=== PATIENT | female | born 1950 | race African-American/Black ===

== ENCOUNTER → 2017-03-04 | Outpatient (CLI) | payer OTHER ==
[2015-10-24 15:00] VITALS: BP 123/80
[~2017-03-04] MED LIST: ALBU18HF IH; ASPI-482 PO; ATOR20TA58 PO; BUPR150T11 PO; CARV6.252 PO; DULO60CA44 PO; FLUT12AE IH; FURO20TA3 PO; OLME20TA19 PO; POTA20TA84 PO; WARF7.5T6 PO
[2017-03-04 13:04] LABS: ALBUMIN 3.7 g/dL (3.4-5.0); ALBUMIN/GLOBULIN RATIO 0.9 (1.0-1.7); CALCIUM 8.9 mg/dL (8.5-10.1); GFR 66.9; POTASSIUM 3.9 mmol/L (3.5-5.1); TOTAL BILIRUBIN 0.5 mg/dL (0.2-1.0); TOTAL PROTEIN 7.9 g/dL (6.4-8.2)
== END | disposition home or self-care (01) ==
LOC: LAB 11:31
PROVIDERS: ATTEND Nurse Practitioner
DX: E78.5 Hyperlipidemia, unspecified (principal)
CPT/HCPCS: 36415; 80053; 80061

== ENCOUNTER → 2017-05-14 | Outpatient (CLI) | payer OTHER ==
[2015-10-24 15:00] VITALS: BP 123/80
[2017-05-14 09:24] LABS: ALBUMIN 3.8 g/dL (3.4-5.0); CALCIUM 9.2 mg/dL (8.5-10.1); GFR 66.9; POTASSIUM 3.6 mmol/L (3.5-5.1); TOTAL BILIRUBIN 0.5 mg/dL (0.2-1.0); TOTAL PROTEIN 7.7 g/dL (6.4-8.2)
== END | disposition home or self-care (01) ==
LOC: LAB 08:47
PROVIDERS: ATTEND Nurse Practitioner
DX: E78.5 Hyperlipidemia, unspecified (principal)
CPT/HCPCS: 36415; 80053; 80061

== ENCOUNTER → 2018-04-04 | Outpatient (CLI) | payer OTHER ==
[2015-10-24 15:00] VITALS: BP 123/80
[~2018-04-04] MED LIST changes: +OLME20TA17 PO; -OLME20TA19 PO; +WARF7.5T45 PO; -WARF7.5T6 PO
[2018-04-04 10:22] LABS: ALBUMIN 3.8 g/dL (3.4-5.0); GFR 66.7; POTASSIUM 3.8 mmol/L (3.5-5.1); TOTAL BILIRUBIN 0.5 mg/dL (0.2-1.0); TOTAL PROTEIN 7.7 g/dL (6.4-8.2)
== END | disposition home or self-care (01) ==
LOC: LAB 09:09
PROVIDERS: ATTEND Nurse Practitioner
DX: E78.5 Hyperlipidemia, unspecified (principal); I25.2 Old myocardial infarction; I10 Essential (primary) hypertension; E78.00 Pure hypercholesterolemia, unspecified; J44.9 Chronic obstructive pulmonary disease, unspecified; I25.10 Atherosclerotic heart disease of native coronary artery without angina pectoris; Z95.4 Presence of other heart-valve replacement; Z90.49 Acquired absence of other specified parts of digestive tract
CPT/HCPCS: 36415; 80053; 80061

== ENCOUNTER → 2019-03-14 | Outpatient (CLI) | payer OTHER ==
[2015-10-24 15:00] VITALS: BP 123/80
[~2019-03-14] MED LIST changes: -ALBU18HF IH; +ALBU2.5V8 IH; -CARV6.252 PO; +CARV6.2541 PO
[2019-03-14 11:00] LABS: ALBUMIN 3.7 g/dL (3.4-5.0); ALBUMIN/GLOBULIN RATIO 0.8 (1.0-1.7); CALCIUM 9.6 mg/dL (8.5-10.1); CREATININE 0.9 mg/dL (0.6-1.0); GFR 75.1; POTASSIUM 4.6 mmol/L (3.5-5.1); TOTAL BILIRUBIN 0.4 mg/dL (0.2-1.0); TOTAL PROTEIN 8.1 g/dL (6.4-8.2)
== END | disposition home or self-care (01) ==
LOC: LAB 09:30
PROVIDERS: ATTEND Nurse Practitioner
DX: E78.5 Hyperlipidemia, unspecified (principal)
CPT/HCPCS: 36415; 80053; 80061

== ENCOUNTER 2020-12-07 20:00 | Emergency (ER) | payer OTHER ==
[~2020-12-07] VITALS: Ht 142.2 cm; Wt 63.6 kg
[~2020-12-07 20:00] MED LIST changes: -DULO60CA44 PO; +DULO60CA98 PO
--- NOTE | 2020-12-07 20:48 | EKG ---
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
[2020-12-07] MEDS ORDERED: ONDANSETRON PF 4 MG/2 ML VIAL. IVP ONE (21:00)
--- NOTE | 2020-12-07 21:04 | PHYS DOC ---
Past History Past Medical History: Arthritis, COPD, Depression Past Surgical History: Cholecystectomy Additional Past Surgical Histo: MVR 02/11/15 Smoking: Cigarettes Alcohol Use: None Drug Use: Marijuana Adult General Chief Complaint Chief Complaint: NAUSEA/VOMITING/DIARRHEA HPI HPI Patient is a 70-year-old female with a past medical history notable for hypertension and COPD who presents with a chief complaint of nausea and vomiting. States she has had nonbloody nonbilious emesis over the last 2 days. Denies any recent travel, fevers, known ill contacts. Denies any headache, chest pain, shortness of breath, abdominal pain, dysuria, hematuria, diarrhea or blood in the stool. States she is able to drink some Gatorade but has had a decreased appetite. Review of Systems Review of Systems Review of systems otherwise unremarkable except noted in HPI Current Medications Current Medications Current Medications Medications (Trade) Dose Ordered Sig/Caro Start Time Stop Time Status Last Admin Dose Admin Ondansetron HCl (Zofran) 4 mg 1X ONCE 12/07/20 21:00 12/07/20 21:01 12/07/20 20:52 4 MG Allergies Allergies Allergies Coded Allergies Type Severity Reaction Last Updated Verified No Known Drug Allergies 10/17/15 No Physical Exam Physical Exam Constitutional: Well developed, well nourished, no acute distress, non-toxic appearance. [] HENT: Normocephalic, atraumatic, bilateral external ears normal, oropharynx moist, no oral exudates, nose normal. [] Eyes: conjunctiva normal, no discharge. [] Neck: Normal range of motion, no tenderness, supple, no stridor. [] Cardiovascular:Heart rate regular rhythm, no murmur [] Lungs & Thorax: Bilateral breath sounds clear to auscultation [] Abdomen: soft, no tenderness, no masses, no pulsatile masses. [] Skin: Warm, dry, no erythema, no rash. [] Back: no CVA tenderness. [] Extremities: No tenderness, no cyanosis, no clubbing, ROM intact, no edema. [] Neurologic: Alert and oriented X 3, normal motor function, normal sensory function, no focal deficits noted. [] Psychologic: Affect normal, judgement normal, mood normal. [] Current Patient Data Vital Signs Vital Signs Date Time Temp Pulse Resp B/P (MAP) Pulse Ox O2 Delivery O2 Flow Rate FiO2 12/07/20 20:15 98.2 80 22 150/98 (115) 98 Room Air EKG EKG [] Radiology/Procedures Radiology/Procedures []CT SCAN OF THE ABDOMEN AND PELVIS WITH IV CONTRAST. History: Reason: ab pain N/V, Comparison:None. Procedure: Contiguous axial images of the abdomen and pelvis were performed after the administration of 75 cc of Omni 300 IV contrast. Oral contrast: No. Findings: There is moderate motion artifact. There is beam Bell artifact in the lower pelvis due to prior bilateral total hip arthroplasty. Liver: Unremarkable Spleen: Unremarkable Pancreas: Unremarkable Adrenal Glands: Unremarkable Kidneys: There is a wedge-shaped hypoattenuating lesion posteriorly in the mid right kidney There is no mass or lymphadenopathy. There is no free air. There is no free fluid. The urinary bladder is not seen due to beam hardening artifact and motion. The visualized portion of the appendix appears normal. There has been prior cholecystectomy. Impression: 1. The study is significantly limited by motion artifact. 2. Wedge-shaped hypoattenuation within the posterior right kidney is nonspecific but could be a scar or infarct or pyelonephritis. End impression. Heart Score C/O Chest Pain: No Risk Factors: Risk Factors: DM, Current or recent (<one month) smoker, HTN, HLP, family history of CAD, obesity. Risk Scores: Risk Factors: DM, Current or recent (<one month) smoker, HTN, HLP, family history of CAD, obesity. Course & Med Decision Making Course & Med Decision Making Patient is a 70-year-old female who presents with 2 days of nausea and vomiting Vital signs notable for hypertension. Physical exam noted above. Patient given Zofran for nausea. Laboratory analysis notable for neutrophilic leukocytosis, proteinuria, ketonuria with normal glucose and no anion gap, mild hyponatremia. [] Imaging notable for scarring on the kidney versus pyelonephritis versus infarct due to artifact. On reassessment discussed all findings with patient and family. Offered admission for continued evaluation and treatment, fluid resuscitation, nausea medicine and pain medicine. Patient stated that she was feeling much better, and would prefer to go home and call her primary care physician at on Wednesday. Discussed the risks of going home including significant illness, disability, worsening pain/nausea and the worst case scenario if there is truly an infarct or significant infection. Patient states she was feeling much better and would prefer to go home and call her primary care Wednesday and get a follow-up. Gave strict return precautions to the ED. Family grateful, verbalized understanding and agreed with plan of discharge. Kassy Disclaimer Kassy Disclaimer This electronic medical record was generated, in whole or in part, using a voice recognition dictation system. Departure Departure: Disposition: 01 DC HOME SELF CARE/HOMELESS Condition: IMPROVED Referrals: PARAMJIT CENTENO MD Patient Instructions: Diet for Diarrhea, Adult, Nausea and Vomiting, Easy-to-R ead Additional Instructions: Please read all of the attached very carefully to go over the things we dis cussed. As discussed please consume a light clear diet over the next few days. Please take your antibiotics as prescribed as well as your nausea medicine and pain medicine. As discussed, please call your primary care physician first thing Wednesday to update on ED visit and set up a follow-up as soon as possible this week. Please come back to the emergency department immediately with new or concerning symptoms as discussed in the room to initiate the plan of admission and continued evaluation and treatment. Scripts Hydrocodone Bit/Acetaminophen (HYDROCODONE-APAP 5-325 ) 1 Each Tablet 1 TAB PO TID PRN for abdominal pain for 5 Days, #15 TAB 0 Refills Prov: CHRISTINA LAKHANI MD 12/08/20 Ondansetron Hcl (ZOFRAN) 4 Mg Tablet 1 TAB PO PRN Q6HRS PRN for NAUSEA for 5 Days, #20 TAB Prov: CHRISTINA LAKHANI MD 12/08/20 Amoxicillin/Potassium Clav (AUGMENTIN 875-125 TABLET) 1 Each Tablet 1 TAB PO BID for abdomianl infection for 10 Days, #20 TAB 0 Refills Prov: CHRISTINA LAKHANI MD 12/08/20 CHRISTINA LAKHANI MD Dec 07, 2020 21:04
[2020-12-07 21:15] LABS: BASO % 0 % (0-3); EOS % 0 % (0-3); HEMATOCRIT 37.8 % (36.0-47.0); HEMOGLOBIN 12.2 g/dL (12.0-15.5); LYMPH # 1.4 x10^3/uL (1.0-4.8); LYMPH % 9 % (24-48); MEAN CORPUSCULAR HEMOGLOBIN 27 pg (25-35); MEAN CORPUSCULAR HGB CONC 32 g/dL (31-37); MEAN CORPUSCULAR VOLUME 82 fL (79-100); MONO # 1.1 x10^3/uL (0.0-1.1); MONO % 7 % (0-9); NEUT # 13.2 x10^3uL (1.8-7.7); NEUT % 84 % (31-73); PLATELET COUNT 190 x10^3/uL (140-400); RED BLOOD COUNT 4.59 x10^6/uL (3.50-5.40); RED CELL DISTRIBUTION WIDTH 16.3 % (11.5-14.5); WHITE BLOOD COUNT 15.8 x10^3/uL (4.0-11.0)
[2020-12-07] MEDS ORDERED: CONTRAST GIVEN. MC PRN (21:15)
[2020-12-07] MEDS ORDERED: IOHEXOL 300 MG/ML 75 ML VIAL. IV ONE (21:30)
[2020-12-07 21:49] LABS: % LYMPHS 5 % (24-48); % MONOS 5 % (0-10); % SEGS 90 % (35-66)
[2020-12-07 21:50] VITALS: BP 158/70
[2020-12-07 21:50] LABS: PLT ESTIMATE ADEQUATE (ADEQUATE)
[2020-12-07 22:15] LABS: CALCIUM 9.6 mg/dL (8.5-10.1); CREATININE 0.7 mg/dL (0.6-1.0); GFR 99.8; POTASSIUM 3.6 mmol/L (3.5-5.1)
[2020-12-07 22:21] LABS: ALBUMIN 3.4 g/dL (3.4-5.0); ALBUMIN/GLOBULIN RATIO 0.6 (1.0-1.7); TOTAL BILIRUBIN 0.6 mg/dL (0.2-1.0); TOTAL PROTEIN 8.7 g/dL (6.4-8.2)
--- NOTE | 2020-12-07 23:14 | RAD ---
CT SCAN OF THE ABDOMEN AND PELVIS WITH IV CONTRAST. History: Reason: ab pain N/V, Comparison:None. Procedure: Contiguous axial images of the abdomen and pelvis were performed after the administration of 75 cc o f Omni 300 IV contrast. Oral contrast: No. Findings: There is moderate motion artifact. There is beam Bell artifact in the lower pelvis due to prior bi lateral total hip arthroplasty. Liver: Unremarkable Spleen: Unremarkable Pancreas: Unremarkable Adrenal Glands: Unremarkable Kidneys: There is a wedge-shaped hypoattenuating lesion posteriorly in the mid right kidney There is no mass or lymphadenopathy. There is no free air. There is no free fluid. The urinary bladder is not seen due to beam hardening artifact and motion. The visualized portion of the appendix appears normal. There has been prior cholecystectomy. Impression: 1. The study is significantly limited by motion artifact. 2. Wedge-shaped hypoattenuation within the posterior right kidney is nonspecific but could be a scar or infarct or pyelonephritis. End impression. PQRS Compliance Statement: One or more of the following individualized dose reduction techniques were utilized for this examinat ion: 1. Automated exposure control 2. Adjustment of the mA and/or kV according to patient size 3. Use of iterative reconstruction technique Electronically signed by: Riky Reeves III, MD (12/07/2020 11:11 PM) [facility]
[2020-12-07 23:25] LABS: BILIRUBIN,URINE NEG (NEG); COLOR,URINE YELLOW; GLUCOSE,URINE NEG (NEG); NITRITE,URINE NEG (NEG)
[2020-12-07 23:26] LABS: AMORPHOUS SEDIMENT,UR PRESENT /HPF; BACTERIA,URINE 0 /HPF (0-FEW); CLARITY,URINE HAZY; RBC,URINE OCC /HPF (0-2); SQUAMOUS EPITHELIAL CELL,UR OCC /LPF; WBC,URINE OCC /HPF (0-4)
[2020-12-08] MEDS ORDERED: ONDA4TAB7 PO (00:06)
[2020-12-08] MEDS ORDERED: AMOX1TAB61 PO (00:06)
[2020-12-08] MEDS ORDERED: HYDR-2155 PO (00:06)
[2020-12-08] MEDS ORDERED: AMOXICILLIN/K CLAV 875/125MG TABLET. PO ONE (00:30)
[2020-12-08] MEDS ORDERED: ONDANSETRON ODT 4 MG TAB.RAPDIS PO ONE (00:30)
[2020-12-08] MEDS ORDERED: MORPHINE SULFATE 4 MG/ML DISP.SYRIN. IV ONE (00:30)
== END 2020-12-08 00:28 | disposition home or self-care (01) ==
LOC: ER 20:00
DX: R11.2 Nausea with vomiting, unspecified (principal); M19.90 Unspecified osteoarthritis, unspecified site; J44.9 Chronic obstructive pulmonary disease, unspecified; F17.210 Nicotine dependence, cigarettes, uncomplicated
CPT/HCPCS: 36415; 74177; 80053; 81001; 83690; 84484; 85007; 85025; 93005; 96374; 96375; 99285; J2270; J2405; Q0162; Q9967

== ENCOUNTER 2021-01-17 10:35 | Inpatient (IN) | payer OTHER ==
[~2021-01-17] VITALS: Ht 157.5 cm; Wt 61.1 kg
[~2021-01-17 10:35] MED LIST changes: +AMOX1TAB61 PO; +HYDR-2155 PO; +ONDA4TAB7 PO
[2021-01-17] MEDS ORDERED: IOHEXOL 350 MG/ML 100 ML VIAL. ONE (10:47)
--- NOTE | 2021-01-17 10:51 | RAD ---
EXAM: Head CT without contrast. HISTORY: Stroke. Facial droop. TECHNIQUE: Computed tomographic images of the head were obtained without contrast. *One or more of the following individualized dose reduction techniques were utilized for this examina tion: 1. Automated exposure control. 2. Adjustment of the mA and/or kV according to patient size. 3. Use of iterative reconstruction technique. COMPARISON: None. FINDINGS: There is a small region of hypodensity within the left parietotemporal frontal lobe cortex and underlying white matter, suggesting infarct of uncertain chronicity. There are cerebral white mat ter changes due to chronic small vessel disease. There are small chronic lacunar infarct within the b emily ganglia. There is also a focal encephalomalacia within the right cerebellum likely due to chroni c infarction. There is mild cerebral volume loss. The orbits, paranasal sinuses mastoid air cells are unremarkable. There is no suspicious calvarial lesion. IMPRESSION: 1. Suspected small acute or subacute infarct within the left parietal lobe. This can be better assess ed with a MRI. 2. Small chronic lacunar infarcts within the bilateral basal ganglia and small suspected chronic infa rct within the right cerebellum. 3. Bilateral cerebral white matter changes, likely due to chronic small vessel disease. Findings were discussed with Dr. Duong in the ED at 1040 hours on 01/17/2021. FOR INTERNAL CODING PURPOSES RESULT CODE: (C) Electronically signed by: Josselin Shah MD (01/17/2021 10:49 AM) [id number]
[2021-01-17] MEDS ORDERED: ONDANSETRON PF 4 MG/2 ML VIAL. ONE (10:52)
[2021-01-17 10:57] LABS: BASO # 0.1 x10^3/uL (0.0-0.2); BASO % 1 % (0-3); EOS # 0.1 x10^3/uL (0.0-0.7); EOS % 1 % (0-3); HEMATOCRIT 36.3 % (36.0-47.0); HEMOGLOBIN 11.7 g/dL (12.0-15.5); LYMPH # 1.5 x10^3/uL (1.0-4.8); LYMPH % 13 % (24-48); MEAN CORPUSCULAR HEMOGLOBIN 26 pg (25-35); MEAN CORPUSCULAR HGB CONC 32 g/dL (31-37); MEAN CORPUSCULAR VOLUME 81 fL (79-100); MONO # 1.3 x10^3/uL (0.0-1.1); MONO % 11 % (0-9); NEUT # 8.7 x10^3uL (1.8-7.7); NEUT % 74 % (31-73); PLATELET COUNT 145 x10^3/uL (140-400); RED BLOOD COUNT 4.48 x10^6/uL (3.50-5.40); RED CELL DISTRIBUTION WIDTH 16.8 % (11.5-14.5); WHITE BLOOD COUNT 11.7 x10^3/uL (4.0-11.0)
[2021-01-17] MEDS ORDERED: IOHEXOL 350 MG/ML 100 ML VIAL. IV ONE (11:00)
[2021-01-17] MEDS ORDERED: CONTRAST GIVEN. MC PRN (11:00)
--- NOTE | 2021-01-17 11:08 | PHYS DOC ---
Past History Past Medical History: Arthritis, COPD, Depression Past Surgical History: Cholecystectomy Additional Past Surgical Histo: MVR 02/11/15 Smoking: Cigarettes Alcohol Use: None Drug Use: Marijuana Adult General Chief Complaint Chief Complaint: SLURRED SPEECH HPI HPI Patient is a 70-year-old female presenting via EMS for slurred speech. Last known normal was yesterday evening at 9 PM. Reports she fell asleep, slept well and on waking up, continue to have slurred speech. She reports trying to eat breakfast and having mild difficulty with associated right upper extremity weakness which concerned her prompting her to hit her life alert button for transport to our ER for evaluation. On arrival, patient reports ongoing aphasia and mild difficulty with motor function of right upper extremity. No trauma, no falls, she is not on any blood thinners, no major changes in baseline health. She has no history of CAD and/or CVA Review of Systems Review of Systems Fourteen body systems of review of systems have been reviewed. See HPI for pertinent positives and negative responses, other [place] all other systems are negative, non-pertinent or non-contributory Current Medications Current Medications Current Medications Medications (Trade) Dose Ordered Sig/Caro Start Time Stop Time Status Last Admin Dose Admin Info (Do NOT chart on this entry -- for MONITORING) 1 each PRN DAILY PRN 01/17/21 11:00 01/19/21 10:59 Iohexol (Omnipaque 350 Mg/ml) 100 ml STK-MED ONCE 01/17/21 10:47 01/17/21 10:47 DC Ondansetron HCl (Zofran) 4 mg STK-MED ONCE 01/17/21 10:52 01/17/21 10:52 DC Allergies Allergies Allergies Coded Allergies Type Severity Reaction Last Updated Verified No Known Drug Allergies 10/17/15 No Physical Exam Physical Exam Constitutional: Pt is oriented to person, place, and time. Pt appears well-developed and well- nourished. HEENT: Head: Normocephalic and atraumatic. TMs clear, no hemotympanum Conjunctivae and EOM are normal. Pupils are equal, round, and reactive to light. Oropharynx is clear and moist. Poor dentition No hematomas or lacerations or abrasions to face or scalp OP clear, no blood, no malocclusion, dentition intact Nares clear, no nasal septal hematoma Midface stable Neck: C-spine midline nontender, no step-offs Cardiovascular: Normal rate, regular rhythm and normal heart sounds. Pulmonary/Chest: Effort normal and breath sounds normal. No respiratory distress. No wheezes. CTA bilaterally Abdominal: Soft. Bowel sounds are normal. Pt exhibits no distension. There is no tenderness. Musculoskeletal: No bony tenderness to extremities, no deformities, full ROM extremities Chest wall stable Pelvis stable and non-tender No vertebral TTP and spine without stepoffs Neurological: Pt is alert and oriented to person, place, and time. Moving all extremities willfully, able to wiggle all fingers and toes Alert and oriented x 3 Sensation intact Partial paralysis of left lower face Severe aphasia; fragmentary expression. Mod dysarthria with slurring that is understandable 4/5 muscle strength of right upper extremity otherwise motor function intact Pspxtw-tp-efup testing, znyg-ej-roaa testing, leg raise, arm raise testing all unremarkable Cranial nerves II through XII intact bilaterally Mild aphasia present which is not her baseline Skin: Skin is warm and dry. No abrasions, no lacerations Psychiatric: Behavior is appropriate for situation Current Patient Data Vital Signs Vital Signs Date Time Temp Pulse Resp B/P (MAP) Pulse Ox O2 Delivery O2 Flow Rate FiO2 01/17/21 10:35 98.2 90 24 138/77 (97) 97 Room Air Vital Signs Date Time Temp Pulse Resp B/P (MAP) Pulse Ox O2 Delivery O2 Flow Rate FiO2 01/17/21 10:35 98.2 90 24 138/77 (97) 97 Room Air EKG EKG EKG ordered and interpreted by myself at 1100 hrs. as sinus rhythm at 92 bpm, prolonged NV interval at 270 otherwise unremarkable intervals, left axis deviation, no acute ischemic findings, no STEMI Radiology/Procedures Radiology/Procedures EXAM: Head CT without contrast. HISTORY: Stroke. Facial droop. TECHNIQUE: Computed tomographic images of the head were obtained without contrast. *One or more of the following individualized dose reduction techniques were utilized for this examination: 1. Automated exposure control. 2. Adjustment of the mA and/or kV according to patient size. 3. Use of iterative reconstruction technique. COMPARISON: None. FINDINGS: There is a small region of hypodensity within the left parietotemporal frontal lobe cortex and underlying white matter, suggesting infarct of uncertain chronicity. There are cerebral white matter changes due to chronic small vessel disease. There are small chronic lacunar infarct within the basal ganglia. There is also a focal encephalomalacia within the right cerebellum likely due to chronic infarction. There is mild cerebral volume loss. The orbits, paranasal sinuses mastoid air cells are unremarkable. There is no suspicious calvarial lesion. IMPRESSION: 1. Suspected small acute or subacute infarct within the left parietal lobe. This can be better assessed with a MRI. 2. Small chronic lacunar infarcts within the bilateral basal ganglia and small suspected chronic infarct within the right cerebellum. 3. Bilateral cerebral white matter changes, likely due to chronic small vessel disease. ////////////////////// Heart Score C/O Chest Pain: No HEART Score for Chest Pain: HEART Score for Chest Pain Response (Comments) Value History Slighlty/Non-Suspicious 0 ECG Normal 0 Age > 65 2 Risk Factors 1 or 2 Risk Factors 1 Troponin < Normal Limit 0 Total 3 Risk Factors: Risk Factors: DM, Current or recent (<one month) smoker, HTN, HLP, family history of CAD, obesity. Risk Scores: Risk Factors: DM, Current or recent (<one month) smoker, HTN, HLP, family history of CAD, obesity. Course & Med Decision Making Course & Med Decision Making Vital signs stable. HPI and physical exam concerning for intracranial abnormality such as ischemic stroke. Code stroke initiated on immediate arrival. Edlmx-ja-zqeh glucose unremarkable. NIH stroke scale 6 and performed in route to CT suite CT without concerning for left parietal/temporal ischemic infarct. CTA head and neck performed at same time without acute thrombus identified Patient brought back to ER bed for further history gathering and work-up. She suffered x1 episode of nonbloody nonbilious emesis with ongoing right lower mouth drooling present [facility] neurology team contacted and case reviewed, they agreed no indication for thrombectomy. Outpatient arteriogram for 1.1 cm aneurysm was recommended [facility] neurology team contacted and case reviewed, no emergent need or need for transfer for MRI at present Dr. Hightower, neurology at [facility] contacted and case reviewed. He agreed on current plan of care and recommended admission for ongoing neurology care. He advised to start patient on 81 mg aspirin and 75 mg Plavix Hospitalist at [facility] contacted and case discussed, he agreed need for admission and accepted patient under his care Patient updated on all conversations had, she agrees to plan of care as stated that includes hospital admission to [facility]. All questions and concerns addressed prior to admission Critical Care Time This patient required critical care. Due to the fact that the patient required a significant amount of one on one physician - patient contact time, ordering and review of studies, arranging urgent treatment with development of a management plan, evaluation of patients response to treatment with frequent reassessments, and discussions with other providers this patient required 50 minutes of critical care time. Critical care time was indicated due to the inherent instability and/or potential for instability in this patient. The critical care time that is allocated to this patient is above and beyond any time spent on any other billable procedures performed on this patient. Dragon Disclaimer Dragon Disclaimer This electronic medical record was generated, in whole or in part, using a voice recognition dictation system. NIH Stroke Scale: NIH Stroke Scale Response (Comments) Value Level of Consciousness: 0 Alert/Responsive 0 LOC Questions: 0 Answers both correctly 0 LOC Commands: 0 Performs both tasks 0 Best Gaze: 0 Normal 0 Visual: 0 No visual loss 0 Facial Palsy: 2 Partial paralysis 2 Motor - Left Arm 0 No drift 0 Motor - Right Arm 1 Drifts but can hold 1 Motor - Left Leg 0 No drift 0 Motor: Right Leg 0 No drift 0 Limb Ataxia: 0 Absent 0 Sensory: 0 No loss 0 Best Language: 2 Severe aphasia 2 Dysathria: 1 Mild to moderate 1 Extinction and Inattention: 0 Normal 0 Total 6 Departure Departure: Impression: Primary Impression: Ischemic stroke Disposition: ADMITTED INPATIENT Admitting Physician: Chano Boles Condition: STABLE Referrals: NON,STAFF (PCP) BREANNE RAMIREZ DO January 17, 2021 11:08
--- NOTE | 2021-01-17 11:25 | RAD ---
EXAM: CT angiogram of the head and neck with intravenous contrast. HISTORY: Slurred speech. Right upper extremity weakness. TECHNIQUE: Computed tomographic images of the head and neck were obtained following the administratio n of contrast. Three-dimensional maximum intensity projection images were obtained. *One or more of the following individualized dose reduction techniques were utilized for this examina tion: 1. Automated exposure control. 2. Adjustment of the mA and/or kV according to patient size. 3. Use of iterative reconstruction technique. COMPARISON: Noncontrast head CT on the same date. FINDINGS: The exam is limited due to suboptimal contrast opacification of the neck and intracranial a rteries. There is evidence of prior coronary artery bypass grafting. The aortic arch is normal in shefali iber. There is partially calcified atherosclerotic plaque involving the carotid bulbs and proximal in ternal carotid arteries. This results in less than 50 percent stenosis within the right carotid bulb and proximal right internal carotid artery and 50-69 percent stenosis within the left carotid bulb an d proximal left internal carotid artery. The distal internal carotid arteries are tortuous. There is a right internal carotid artery aneurysm with peripheral calcified atherosclerotic plaque measuring 1.1 cm proximal to the petrous segment. Th ere is partially calcified atherosclerotic plaque involving the cavernous internal carotid arteries, resulting in 50-69 percent stenosis bilaterally. The anterior, middle and posterior cerebral arteries are widely patent. The posterior communicating arteries and anterior commuting indicating artery are patent. The basilar artery is patent. The right vertebral artery is dominant and the distal left sharmin tebral artery is hypoplastic. There is decreased attenuation within the left parietal lobe. There are white changes due to chronic small vessel disease. There are suspected chronic lacunar infarcts within the basal ganglia and there is a suspected small chronic infarct within the right cerebellum. There are small axillary sinus mucous retention cysts. The mastoid air cells are clear. There are deg enerative changes throughout the cervical spine. This results in [id number]-[id number] right and moderate to severe left foraminal and mild central canal stenosis at C3-C4, moderate lateral foraminal stenosi s at C4-C5, mild left foraminal stenosis at C5-C6 and moderate left foraminal stenosis at C6-C7. There is a heterogeneous thyroid, difficult to assess given timing of contrast administration. There is pulmonary emphysema and peripheral chronic interstitial changes within the visualized lungs. There is a small amount of suspected mucus within the left mainstem bronchus.. IMPRESSION: 1. Significantly limited exam due to suboptimal contrast opacification of the neck and intracranial a rteries. No severe stenosis or occlusion is seen. 2. Moderate atherosclerotic plaque involving the carotid bifurcations and distal internal carotid art eries. This results in less than 50 percent stenosis involving the proximal right internal carotid ar oumou, 50-69 percent stenosis involving the proximal left internal carotid artery and 50-[address] enosis involving the bilateral cavernous segments of the internal carotid arteries. 3. 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 4. Small region of hypodensity within the left parietal lobe, concerning for an acute or subacute inf arct. This can be better assessed with an MRI. This was reported to the referring doctor at the time of a noncontrast head CT. 5. Bilateral cerebral white changes, likely due to chronic small vessel disease. PQRS Compliance Statement - Stenosis calculations for CT, MR and conventional angiography are based u oumar measurement of the distal ICA diameter in accordance with the NASCET methodology. Stenosis calcu lations for carotid ultrasound studies are derived from validated velocity criteria which are known t o correlate with the NASCET methodology. Electronically signed by: Josselin Shah MD (01/17/2021 11:23 AM) [id number]
--- NOTE | 2021-01-17 11:29 | EKG ---
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
[2021-01-17] MEDS ORDERED: ONDANSETRON PF 4 MG/2 ML VIAL. IVP ONE (11:30)
[2021-01-17 11:50] LABS: BILIRUBIN,URINE NEG (NEG); CLARITY,URINE CLEAR; COLOR,URINE YELLOW; GLUCOSE,URINE NEG (NEG); NITRITE,URINE NEG (NEG); RBC,URINE OCC /HPF (0-2)
[2021-01-17 11:51] LABS: BACTERIA,URINE FEW /HPF (0-FEW); SQUAMOUS EPITHELIAL CELL,UR MOD /LPF
[2021-01-17] MEDS ORDERED: CLOPIDOGREL BISULFATE 75 MG TABLET PO ONE ×2 (12:00→18:00)
[2021-01-17] MEDS ORDERED: ASPIRIN CHEWABLE 81 MG TABLET. PO ONE ×2 (12:00→18:00)
[2021-01-17 12:26] LABS: CALCIUM 8.6 mg/dL (8.5-10.1); CREATININE 1.9 mg/dL (0.6-1.0); GFR 31.5; POTASSIUM 4.4 mmol/L (3.5-5.1)
[2021-01-17 12:27] LABS: BARBITURATES NEG (NEG); BENZODIAZEPINES NEG (NEG); CANNABINOIDS NEG (NEG); COCAINE POS (NEG); METHADONE NEG (NEG); OPIATES NEG (NEG); PHENCYCLIDINE NEG (NEG)
[2021-01-17 12:28] LABS: AMPHETAMINE/METHAMPHETAMINE NEG (NEG)
[2021-01-17 12:34] LABS: ALBUMIN 3.4 g/dL (3.4-5.0); ALBUMIN/GLOBULIN RATIO 0.8 (1.0-1.7); TOTAL BILIRUBIN 0.6 mg/dL (0.2-1.0); TOTAL PROTEIN 7.8 g/dL (6.4-8.2)
--- NOTE | 2021-01-17 12:54 | RAD ---
Exam Date: 01/17/2021 12:45 PM XR CHEST 1V Indication: Reason: EMESIS / Spl. Instructions: / History: Comparison: March 15, 2014 FINDINGS/ IMPRESSION: Postoperative changes are noted. Aorta is calcified. The cardiac silhouette is enlarged with mild congestion. Prominent interstitial markings are noted di ffusely bilaterally which are nonspecific but could represent interstitial edema or pneumonia. There is no appreciable pleural effusion or pneumothorax. Electronically signed by: Konrad Hartman MD (01/17/2021 12:52 PM) [facility]
--- NOTE | 2021-01-17 15:43 | NUR ---
PATIENT IS 70 Y O FEMALE, ARRIVED VIA EMS, PATIENT IS AWAKE IN A BED UPON ASSESSMENT, VS OBTAINED AND ARE STABLE. PATIENT DENIED ANY PAIN AT THIS MOMENT, PATIENT IS UNABLE TO PUT THE WORDS TOGETHER, HAS DIFFICULTY TO EXPRESS HERSELF. SLIGHT CONFUSION UPON ASSESSMENT, PATIENT HAS MILD WEAKNESS TO RUE AND RLE, PT WAS ABLE TO TRANSFER TO THE COMMODE WITH ASSIST X 1. PATIENT WAS ORIENTED TO THE ROOM AND HOSPITAL POLICIES. WILL CTM.
[2021-01-17 15:52] VITALS: BP 119/79
[2021-01-17] MEDS ORDERED: ALBUTEROL SULFATE 2.5 MG/3 ML NEBU. IH PRN (17:45)
[2021-01-17] MEDS ORDERED: ONDANSETRON ODT 4 MG TAB.RAPDIS PO PRN (18:00)
--- NOTE | 2021-01-17 18:23 | NUR ---
CONSULT FOR MENTAL HEALTH PROFESSIONAL HAS BEEN CALLED.
--- NOTE | 2021-01-17 18:37 | HP ---
ADMIT DATE: 01/17/2021 HISTORY OF PRESENT ILLNESS: The patient is a 70-year-old -[place] female patient who presented to the emergency room via EMS with slurred speech, the last known normal was yesterday evening at around 9:00 p.m. She reported that she fell asleep, slept very well and on waking up, she continued to have slurred speech. She reports trying to eat breakfast, having mild difficulty with associated right upper extremity weakness, which concerned her, prompting her to hit her Life Alert button for transfer to Emergency Room for evaluation. On arrival to the Emergency Room, the patient has ongoing aphasia and mild difficulty with motor function of the right upper extremity. There was no history of trauma or falls. She is not known to have blood thinner or no major changes in her baseline health and has had no previous history of coronary artery disease or CVA. She was extensively investigated in the emergency room and has had lab work, which showed that she has elevated troponin at 0.164. She has also chronic kidney disease or acute on chronic kidney disease. Her PT, INR and APTT are normal. Urinalysis was essentially unremarkable; however, toxic screen was positive for cocaine, has had a CT scan of the head which showed that the patient has suspected small acute or subacute infarct within the left parietal lobe. This can be better assessed with MRI. She has small chronic lacunar infarct within the bilateral basal ganglia and a small suspected chronic infarct within the right cerebellum. She has bilateral cerebral white matter changes likely due to chronic small vessel disease. She has had a CT angio of the head and neck, which showed the patient has significantly limited exam due to suboptimal contrast opacification of the neck and intracranial arteries. No severe stenosis or occlusion is seen. She has moderate atherosclerotic plaque involving the carotid bifurcation and distal internal carotid arteries. This resulted in less than 50% stenosis involving the proximal right internal carotid artery 50-69% stenosis involving the proximal left internal carotid artery and 50-69% stenosis involving the bilateral cavernous segment of the internal carotid arteries. 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 She has small region of hypodensity within the left parietal lobe concerning for an acute or subacute infarct, bilateral cerebral white changes likely due to chronic small vessel disease. Apparently, the ER physician has contacted the neurologist at [facility] and spoke with Dr. Cabezas as well as Dr. Hightower. The [facility] Neurology has been contacted and case reviewed and they agreed no indication for thrombectomy and outpatient arteriogram for 1.1 cm aneurysm was recommended. The [facility] Neurology Team contacted and case reviewed, no emergent need for transferred for MRI, and Dr. Hightower, neurologist at [facility] contacted and the case was reviewed. He agreed with the current plan of care and recommended admission for ongoing neurology care. Plan to start the patient on aspirin and Plavix. The patient was admitted and obviously consulted Dr. Hightower. We will also arrange for an echocardiogram and have Cardiology consult and check her fasting lipid profile as well as consult Physical, Occupational and speech therapy. PAST MEDICAL HISTORY: Significant for hypertension. No other medical problems available MEDICATIONS: She apparently was on Coumadin at one point. She is also on atorvastatin 20 mg daily, carvedilol 6.25 mg twice a day, minoxidil 20 mg once a day. She was on hydrocodone/APAP 5/325 three times a day, Wellbutrin 150 mg twice a day, duloxetine 60 mg daily, furosemide 20 mg daily, ondansetron 4 mg every 6 hours as needed. FAMILY HISTORY: Noncontributory and in fact unobtainable. SOCIAL HISTORY: She apparently lives alone. She has 2 daughters. The patient is having difficulty finding words and no further information are obtainable. PHYSICAL EXAMINATION: GENERAL: On arrival to the emergency room, she looked well and was clearly in no apparent respiratory distress. No pallor, jaundice, cyanosis, or thyromegaly. No jugular venous distention. No lower limb edema. VITAL SIGNS: Her heart rate was 88, blood pressure 142/77, temperature was 98.3, respiratory rate was 22 and oxygen saturation was 98%. HEAD, EYES, EARS, NOSE, AND THROAT: Normocephalic, atraumatic. NECK: Supple. HEART: Normal first and second heart sounds, no gallop, murmur. CHEST: Clear to auscultation. No crepitation or rhonchi. ABDOMEN: Distended, soft, nontender. NEUROLOGIC: The patient was awake, alert, clearly has expressive aphasia, worsened aphasia. She has mild right-sided facial droop, right-sided hemiplegia, worse in the right upper extremity compared to right lower extremity. LABORATORY DATA: Showed a white cell count of 11,700, hemoglobin 12, hematocrit 36, MCV 81 and platelet count of 145,000. Her chemistry showed a serum sodium 135, potassium 4.4, chloride 101, bicarbonate 24, anion gap of 10, BUN 21, creatinine 1.9. Estimated GFR was 31 mL per minute. Her glucose 117, lactic acid 0.8, calcium was 8.6. Total bilirubin, AST, ALT, alkaline phosphatase were normal. Her first set of cardiac enzymes showed troponin to be 0.164. Total protein 7.8, albumin was 3.4. Her prothrombin time was 10.6, INR of 1, APTT was 25. Urinalysis was essentially unremarkable. Her toxic screen was positive for cocaine, negative for opiates, methadone, barbiturates, incyclinide, amphetamine, methamphetamine, benzodiazepine, cannabinoids and alcohol. So, in summary, this is a 70-year-old -[place] female patient who was admitted with slurring of speech and right-sided weakness, more dense in her right upper extremity than lower extremity. CT scan of the head showed that the patient has suspected small acute to subacute infarct within the left parietal lobe. The patient has also small chronic lacunar infarct within the bilateral basal ganglia and small suspected chronic infarct within the right cerebellum and has bilateral cerebral white matter changes likely due to chronic small vessel disease. The patient will be started on Plavix and aspirin. She probably has also history of atrial fibrillation and as she was before on Coumadin, we will put the patient on telemetry bed. Consult the Cardiology, also arrange for an echocardiogram; PT, OT and speech therapy and will reconcile all her medications. JANICE DR: Caro TID: [id number]
--- NOTE | 2021-01-17 19:45 | NUR ---
Pt has a fever of 101.3. Pt is not following commands. MD notified of this finding. Orders received.
[2021-01-17 19:51] VITALS: BP 115/79
--- NOTE | 2021-01-17 20:15 | NUR ---
[employer]OVAL SUPERVISOR scanned bladder to see if pt was retaining urine. Pt had 200 in her bladder and then she urinated 150 out.
[2021-01-17] MEDS: buPROPion SR 150 MG TABLET.SA PO SCH (20:46)
[2021-01-17] MEDS: CARVEDILOL 6.25 MG TABLET PO SCH (20:47)
[2021-01-17] MEDS: ACETAMINOPHEN 325 MG TABLET PO PRN (20:47)
[2021-01-17] MEDS ORDERED: AZITHROMYCIN 500 MG in IV NORMAL SALINE 250ML 250 ML IV ONE (21:00)
[2021-01-17 21:57] LABS: BACTERIA,URINE 0 /HPF (0-FEW); BILIRUBIN,URINE NEG (NEG); CLARITY,URINE CLEAR; COLOR,URINE YELLOW; GLUCOSE,URINE NEG (NEG); NITRITE,URINE NEG (NEG); RBC,URINE RARE /HPF (0-2); SQUAMOUS EPITHELIAL CELL,UR MOD /LPF
[2021-01-17 23:00] VITALS: BP 76/52
--- NOTE | 2021-01-17 23:25 | NUR ---
Upon 2300 vitals pt's BP was 76/52 with a heart rate of 83. Placed pt in Trendelenburg and pt's BP is now 84/57 with a heart rate of 80. MD notified and orders received to give 500 ml bolus.
[2021-01-17 23:26] VITALS: BP 84/57
[2021-01-17] MEDS ORDERED: IV NORMAL SALINE 500ML 500 ML IV ONE (23:45)
[2021-01-18] VITALS (9 sets, daily range): BP systolic 86–146; BP diastolic 47–96
[2021-01-18] MEDS ORDERED: IV NORMAL SALINE 500ML 500 ML IV ONE (00:30)
--- NOTE | 2021-01-18 00:44 | NUR ---
Pt's BP came back up after 500 ml bolus.
[2021-01-18 07:08] LABS: ALBUMIN 2.8 g/dL (3.4-5.0); ALBUMIN/GLOBULIN RATIO 0.6 (1.0-1.7); CALCIUM 8.7 mg/dL (8.5-10.1); CREATININE 2.2 mg/dL (0.6-1.0); GFR 26.6; POTASSIUM 4.5 mmol/L (3.5-5.1); TOTAL BILIRUBIN 0.5 mg/dL (0.2-1.0); TOTAL PROTEIN 7.6 g/dL (6.4-8.2)
--- NOTE | 2021-01-18 08:04 | NUR ---
This nurse assumed care for patient at 0700. Report taken from TOMA Frederick. Patient resting quietly in bed at time of report. Yoly states she did not administer second IV NS Bolus d/t patient's BP returned to normal limits. IV bolus non-administered in the eMAR at this time. No concerns noted at this time, will continue to monitor.
[2021-01-18] MEDS: DULoxetine HCL 60 MG CAPSULE.DR PO SCH (09:23)
[2021-01-18] MEDS: buPROPion SR 150 MG TABLET.SA PO SCH ×2 (09:23→21:00)
[2021-01-18] MEDS: ATORVASTATIN CALCIUM 20 MG TABLET PO SCH (09:24)
[2021-01-18] MEDS: CARVEDILOL 6.25 MG TABLET PO SCH ×2 (09:24→21:02)
[2021-01-18] MEDS: LOSARTAN 50 MG TABLET. PO SCH (09:24)
--- NOTE | 2021-01-18 13:37 | PN ---
SUBJECTIVE: The patient denies any new medical or neurological complaints; however, she continues to have aphasia and difficulty finding words. Her comprehension appeared to be intact. She is unable to complete sentences. She has a problem with naming, reading and writing. OBJECTIVE: GENERAL: Well-developed, well-nourished -[place] female, in no acute distress. VITAL SIGNS: Blood pressure 115/71, respiratory rate 18, pulse is 76 and regular, oxygen saturation 98% and temperature is 98.7. HEENT: Normocephalic, atraumatic, otherwise unremarkable. NECK: Supple, negative for carotid bruit, lymphadenopathy or thyromegaly. LUNGS: Clear to A and P. HEART: Regular rate and rhythm, normal S1, S2. ABDOMEN: Soft. Bowel sounds positive. EXTREMITIES: Negative for cyanosis, clubbing or edema. NEUROLOGIC: Mental status: The patient is awake, but aphasic of motor aphasia with intact comprehension as described above, otherwise unchanged. Cranial nerves: Right facial asymmetry of central type. Motor examination revealed right hemiparesis, more prominent in the right upper extremity and distally more than proximally consistent with acute/subacute stroke. The strength also was 4/5 throughout. Sensory examination revealed dense diminished pinprick and light touch senses over the right face, upper and lower extremities. Deep tendon reflexes were asymmetric and hypoactive with equivalent Babinski. Gait not tested. IMPRESSION: 1. Status post acute/subacute stroke resulted in right hemiparesis, more prominent in the right upper extremity along with language dysfunctions of motor type. 2. Multiple medical problems include hypertension, hyperlipidemia, depression, anxiety. Urine drug screen is positive for cocaine. Abnormal chest x-ray revealed prominent interstitial markings suggestive of pneumonia. RECOMMENDATIONS: Continue with current medical care. Await for a complete stroke workup and rehabilitation including PT/OT and speech therapy. AFIA/KINGSLEY DR: Lizet TID: [id number]
[2021-01-18] MEDS: IV NORMAL SALINE 1,000ML 1,000 ML IV SCH (13:43)
--- NOTE | 2021-01-18 20:09 | PN ---
DATE: 01/18/[address]: Caro TID: [id number]
--- NOTE | 2021-01-18 20:53 | PN ---
DATE: 01/18/2021 SUBJECTIVE: The patient is sitting comfortably in her chair, eating her lunch comfortably, in no apparent distress. On questioning her, denied any complaint. Nursing staff stated that she managed to walk to the bathroom this morning, she was feeding herself. PHYSICAL EXAMINATION: GENERAL: When I examined her, she looked well and was clearly in no apparent respiratory distress. No pallor, jaundice, cyanosis, or thyromegaly. No jugular venous distention. No limb edema. VITAL SIGNS: Her heart rate was 76, blood pressure was 115/71, temperature was 98.7, respiratory rate was 18, and oxygen saturation was 98%. HEAD, EYES, EARS, NOSE AND THROAT: Showed normocephalic, atraumatic. NECK: Supple. HEART: Normal first and second heart sounds, no gallop, murmur. CHEST: Clear to auscultation. No crepitation or rhonchi. ABDOMEN: Distended, soft, nontender. No guarding or rigidity. No organomegaly. All hernial orifice intact. Bowel sounds normal. NEUROLOGIC: She is awake, alert, does have expressive aphasia. Has right-sided facial droop and right-sided hemiplegia, dense on the right upper extremity than the right lower extremity, consistent with left middle cerebral artery territory infarct. Her intake and output were incompletely recorded. LABORATORY DATA: Her lab work this morning showed a serum sodium 138, potassium 4.5, chloride 105, bicarbonate 23, anion gap of 10, BUN 23, creatinine 2.2. Estimated GFR was 26 mL per minute. Her glucose was 95, calcium was 8.7. Total bilirubin, AST, ALT, alkaline phosphatase were normal. Total protein 7.6, albumin 2.8. Serum triglycerides were 75. Total cholesterol 120, LDL was 73, VLDL was 15, HDL cholesterol was 32 and the ratio was 3. Urinalysis essentially unremarkable. Toxic screen was positive for cocaine. She did have a CT angio of the head and neck, which showed that the patient has moderate atherosclerotic plaque involving the carotid bifurcation of distal internal carotid arteries resulting in less than 50% stenosis involving the proximal right internal carotid artery, 50-69% stenosis involving the proximal left internal carotid artery, and 50-69% stenosis involving the bilateral cavernous segment of the internal carotid arteries. 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 Small region of hypodensity within the left parietal lobe concerning for an acute or subacute infarct. ASSESSMENT: 1. 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 2. Hypertension. 3. Chronic obstructive pulmonary disease. 4. History of pulmonary embolism. 5. Severe mitral regurgitation. 6. Chronic congestive heart failure. PLAN: We will get the records from [facility] as there was mention of mitral valve replacement for severe mitral regurgitation and her mother stated that she has had some surgery on her valve at [facility]. If she is on a prosthetic valve, we probably have to start her back on Coumadin. DENISE DR: Caro TID: [id number]
[2021-01-18] MEDS: AZITHROMYCIN 250 MG in IV NORMAL SALINE 250ML 250 ML IV SCH (22:16)
--- NOTE | 2021-01-19 02:44 | CONS ---
DATE OF CONSULTATION: 01/17/2021 NEUROLOGY CONSULTATION REFERRING PHYSICIAN: Dr. Boles REASON FOR CONSULTATION: Acute stroke. HISTORY OF PRESENT ILLNESS: This is a 70-year-old right-handed -Welsh female who was admitted through Emergency Room today on account of a sudden onset of slurred speech, difficulty finding words, weakness of the right upper and lower extremities. The patient stated she has been in her usual state of health until last night when she felt very sleepy. She woke up this morning between 8:00 and 9:00 and had difficulty finding words, forming sentences and had weakness of the right upper and lower extremities with right facial drooping. The patient was able to activate EMS and transferred to emergency room at [facility] for further evaluation. The patient denies headaches, visual disturbances, nausea, vomiting, chest pain, shortness of breath or palpitation. The patient was investigated in the Emergency Room with head CAT scan, which revealed evidence of chronic small vessel ischemic changes, possible subacute lacunar infarct confined to the left parietal lobe along with old right cerebellar infarct and chronic bilateral basal ganglia infarcts as well. In ER, CT angio of the head and neck was performed and revealed evidence of proximal right internal carotid artery stenosis estimated less than 50% and 50-69% stenosis of the left internal carotid artery along with 1.1 cm aneurysm of the right internal carotid artery as well. The patient was admitted for further evaluation. PAST MEDICAL HISTORY: Significant for hyperlipidemia, depression, arthritis, history of atrial fibrillation and she was placed on Coumadin in the past. Hypertension. PAST SURGICAL HISTORY: Positive for cholecystectomy. SOCIAL HISTORY: The patient lives alone and has 2 daughters. FAMILY HISTORY: Noncontributory. CURRENT HOME MEDICATIONS: Include Lipitor 20 mg daily, carvedilol 6.25 mg twice daily, minoxidil 20 mg once daily, hydrocodone/APAP 5/325 mg 3 times daily, Wellbutrin 150 mg twice daily, duloxetine 60 mg daily, furosemide 20 mg daily and Zofran 4 mg every 6 hours p.r.n. as needed. ALLERGIES: No known drug allergies. REVIEW OF SYSTEMS: A 12-point review of system was performed as mentioned above in history of present illness, otherwise unremarkable. PHYSICAL EXAMINATION: GENERAL: Well-developed, well-nourished female, not in any acute distress. She weighs 57.1 kilos. VITAL SIGNS: Blood pressure 115/79, respiratory rate 20, pulse is 81, temperature is 101.3, oxygen saturation is 96% on room air. HEENT: Normocephalic, atraumatic, otherwise unremarkable. NECK: Supple. Negative for carotid bruit, lymphadenopathy or thyromegaly. LUNGS: Clear to A and P. CARDIOVASCULAR: Regular rhythm. Normal S1, S2. ABDOMEN: Soft. Bowel sounds positive. EXTREMITIES: Negative for cyanosis, clubbing or pitting edema. NEUROLOGIC: Mental status: The patient is alert and awake. Speech is consistent with aphasia of posterior type along with paraphasia and difficulty finding words, naming, writing and comprehension; she has difficulty completing sentences. Memory, judgment and abstracting thinkings are fair. The patient denies hallucination or delusion. Cranial nerves: Visual orourke appear to be intact. The pupils are equal and reactive to light and accommodation. The extraocular movements are intact. There is no nystagmus. There is marked right facial asymmetry of central type. Hearing is diminished bilaterally. The palate is elevated symmetrically. Sternocleidomastoid muscles are powerful bilaterally. The patient shrugs her shoulders symmetrically and protrudes her tongue in the midline without fasciculation or atrophy. Motor examination: No focal muscle bulk wasting. The tone is normal. The strength is 3/5 in the distal right upper extremity and 4/5 in the right lower extremity compared to those on the left side. Sensory examination revealed diminished pinprick and light touch senses in dense distributions over the right face, upper and lower extremities compared to those on the left side. Deep tendon reflexes were symmetric and hypoactive with equivocal Babinski. Gait not tested. LABORATORY DATA: CBC revealed white blood cells of 11.7, hemoglobin 11.7, hematocrit 36.3, platelet count 145,000. Chemistry revealed sodium of 135, potassium 4.4, chloride 101, CO2 is 24, BUN 21, creatinine 1.9, glucose 117, calcium 8.6. Liver enzymes are normal. Troponin level is 0.164. Coagulation: PT is 10.6 and PTT is 25. Urinalysis: No evidence of urinary tract infection. DIAGNOSTIC DATA: CT scan and CT angio of the neck and head as mentioned above in the history of present illness. Additionally, degenerative disk disease more prominent at C5-C6 and C6-C7 with moderate atherosclerotic plaque in the carotid bifurcation and distal internal carotid arteries along with 1.1 cm aneurysm of the right internal carotid artery proximal to the skull base, bilateral white matter small vessel ischemic changes were also noted. IMPRESSION: 1. Acute/subacute stroke, resulted in motor aphasia and right dense hemiparesis, more prominent on the face and upper extremity with risk factors of age, hypertension and hyperlipidemia. 2. History of paroxysmal atrial fibrillation. 3. History of hypertension and hyperlipidemia. RECOMMENDATIONS: 1. Start the patient on aspirin 81 mg and Plavix 75 mg p.o. daily. 2. Other stroke workup includes echocardiogram, cardiology consult, lipid profile, PT/OT and speech therapy including swallowing function evaluation. AFIA/MOSES/LATASHA DR: Lizet TID: [id number]
[2021-01-19 05:39] VITALS: BP 127/72
[2021-01-19 08:04] LABS: HEMATOCRIT 34.5 % (36.0-47.0); HEMOGLOBIN 11.2 g/dL (12.0-15.5); RED BLOOD COUNT 4.22 x10^6/uL (3.50-5.40); RED CELL DISTRIBUTION WIDTH 16.8 % (11.5-14.5); WHITE BLOOD COUNT 9.9 x10^3/uL (4.0-11.0)
--- NOTE | 2021-01-19 08:09 | PDOC ---
PROVIDER NOTE PROVIDER NOTE PROVIDER NOTE FULL NOTE DICTATED. 1. CABG 2. MVR - bioprosthetic 3. ? Afib 4. Cocaine abuse 5. Acute CVA 6. BIB with CKD and baseline of 1.3 -Plan Continue asa, coreg, statin Consider holding losartan given BIB, consider hydralazine and imdur for BP contro Await echo Consider eliquis if ok with neurology. Thanks Justification of Admission: Justification of Admission: Justification of Admission Dx: N/A MENDEL GARCIA MD January 19, 2021 08:09
[2021-01-19 08:22] LABS: CALCIUM 8.9 mg/dL (8.5-10.1); CREATININE 1.3 mg/dL (0.6-1.0); GFR 48.9; POTASSIUM 4.2 mmol/L (3.5-5.1)
[2021-01-19] MEDS: LOSARTAN 50 MG TABLET. PO SCH (08:36)
[2021-01-19] MEDS: ATORVASTATIN CALCIUM 20 MG TABLET PO SCH (08:37)
[2021-01-19] MEDS: CARVEDILOL 6.25 MG TABLET PO SCH ×2 (08:37→20:58)
[2021-01-19] MEDS: buPROPion SR 150 MG TABLET.SA PO SCH ×2 (08:37→20:58)
[2021-01-19] MEDS: DULoxetine HCL 60 MG CAPSULE.DR PO SCH (08:37)
[2021-01-19] MEDS: ASPIRIN CHEWABLE 81 MG TABLET. PO SCH (08:37)
--- NOTE | 2021-01-19 08:45 | CONS ---
DATE OF CONSULTATION: 01/19/2021 REASON FOR CONSULTATION: Elevated troponin. HISTORY OF PRESENT ILLNESS: The patient is a 70-year-old woman with past medical history as noted below, who presented to the hospital in the setting of strokes. She had slurred speech and difficulty with eating her meals and ultimately was diagnosed with an acute subacute stroke with right dense hemiparesis based on CT scan. She was felt to have been outside the window of thrombolytic therapy. She does have a history of paroxysmal atrial fibrillation, hypertension and was admitted for further evaluation and therefore, cardiology was consulted for further treatment in the setting of an elevated troponin. On initial arrival, her vital signs were decreased with a systolic blood pressure that was labile, going as high as 156 and as low as 90/60. She also had a fever on the . Nonetheless, since admission, she has been struggling because of her expressive aphasia. PAST MEDICAL HISTORY: Based on records from [facility]: 1. Coronary artery disease status post CABG x2. 2. History of mitral valve replacement, likely bioprosthetic. 3. Labile blood pressure. 4. Obesity. 5. COPD. 6. Dyslipidemia. 7. Substance abuse with current laboratory evaluation, toxicology revealing positive for cocaine use. 8. No clear diagnosis of atrial fibrillation based on prior hospital records. SOCIAL HISTORY: The patient does smoke and has illicit drug use as noted. FAMILY HISTORY: Noncontributory. REVIEW OF SYSTEMS: Unable to be completed due to the patient's aphasia. ALLERGIES: No known drug allergy. CURRENT CARDIOVASCULAR MEDICATIONS: 1. Aspirin 81 mg daily. 2. Losartan 100 mg daily. 3. Atorvastatin 20 mg daily. 4. Carvedilol 6.25 mg p.o. b.i.d. PHYSICAL EXAMINATION: VITAL SIGNS: Afebrile, 75, 18, 127/72, 94% on room air. GENERAL: She was resting in bed, but does have expressive aphasia. CARDIOVASCULAR: Normal heart tones. LUNGS: Normal lung sounds. ABDOMEN: Soft. EXTREMITIES: No edema, 2+ radial pulses. NEUROLOGIC: Deficits and expressive aphasia noted and right-sided weakness. SKIN: No rashes. LABORATORY DATA: 1. Positive for cocaine use. 2. White blood cell count down trending to 11.7. 3. Creatinine elevated at 2.2. 4. Troponin peaked at 0.164, downtrending. 5. EKG demonstrates sinus rhythm with first degree AV block. 6. Head and neck CTA reviewed. ASSESSMENT: 1. Acute cerebrovascular accident in the setting of hypertension and substance abuse. 2. History of coronary artery disease status post bypass with elevated troponin, likely type 2 demand mediated ischemia. 3. History of mitral valve replacement, presumably bioprosthetic based on examination. 4. Questionable history of atrial fibrillation, but no clear evidence based on currently available records from [facility]. 5. Substance abuse. RECOMMENDATIONS: 1. At this present time, would continue medication regimen including aspirin, carvedilol and statin. 2. Consider withholding losartan given her creatinine last year was 1.3 and with her acute kidney injury would favor initiation of hydralazine and amlodipine for blood pressure. 3. Confirm possibility of atrial fibrillation and given her mitral valve disease history, she may benefit from initiation of anticoagulation with Eliquis. We will defer to Dr. Hightower with regards to this as far as timing given her recent stroke. If there is not any significant risk of hemorrhagic transformation, would initiate on Eliquis therapy. Plan for outpatient event monitor. Await echocardiogram. Thank you for this consultation. We will follow along closely. SUREKHA DR: Katerina TID: [id number]
[2021-01-19] MEDS: IV NORMAL SALINE 1,000ML 1,000 ML IV SCH ×2 (10:59→21:00)
[2021-01-19 11:09] VITALS: BP 117/61
[2021-01-19 15:57] VITALS: BP 128/78
--- NOTE | 2021-01-19 16:33 | NUR ---
nursing note Pt has continues to have poor appetite.
[2021-01-19 19:22] VITALS: BP 135/89
[2021-01-19] MEDS: AZITHROMYCIN 250 MG in IV NORMAL SALINE 250ML 250 ML IV SCH (21:52)
--- NOTE | 2021-01-19 23:04 | PN ---
SUBJECTIVE: The patient denies any new medical neurological complaints. She continues to be aphasic, not able to name or complete sentences. However, her speech shows a slight improvement. She denies chest pain, shortness of breath or palpitation. OBJECTIVE: GENERAL: Well-developed, well-nourished -Austrian female in no acute distress. VITAL SIGNS: Blood pressure 127/72, respiratory rate 18, pulse 75 and regular, oxygen saturation 94% on room air and temperature 97.6. HEENT: Normocephalic, atraumatic, otherwise unremarkable. NECK: Supple, negative for carotid bruit, lymphadenopathy or thyromegaly. LUNGS: Clear to A and P. CARDIOVASCULAR: Regular rate and rhythm, normal S1, S2. There is no S3, S4 or murmur. ABDOMEN: Soft. Bowel sounds positive. EXTREMITIES: Negative for cyanosis, clubbing or pedal edema. NEUROLOGIC: Mental status: The patient is aphasic of motor type. However, her comprehension is somewhat intact. She has difficulty naming and finding words with paraphasia. Further evaluation of her mental status is limited at this time. Cranial nerves: Right facial asymmetry. Motor examination revealed a right upper extremity paresis more distally than proximally consistent with acute stroke. Sensory examination revealed diminishing pinprick and light touch senses over the right face, upper and lower extremities compared to those on the left side. Deep tendon reflexes were symmetric and hypoactive with absent Achilles responses. Gait: Not tested. LABORATORY DATA: CBC revealed while blood cells of 9.9 thousand, hemoglobin 11.2, hematocrit 34.5, platelet count 182,000. Chemistry revealed sodium of 137, potassium 4.2, chloride 104, CO2 23, BUN 17, creatinine 1.3, glucose 98, calcium is 8.9. IMPRESSION: Status post acute stroke resulted in left parietal infarcts and right upper extremity paresis. According to the patient, she has been using cocaine recently, which may have contributed to the current stroke. However, the patient had a multifactorial risk of stroke including coronary artery disease status post coronary artery bypass graft and possible paroxysmal atrial fibrillation by history. However, the current rhythm is normal. RECOMMENDATION: 1. Continue with current neurological recommendation as initiated. 2. Await echocardiogram, Holter monitoring to rule out paroxysmal atrial fibrillation. Continue with PT, OT and speech therapy. AFIA/HAI DR: AFIA/fatuma TID: [id number]
[2021-01-19 23:09] VITALS: BP 109/75
--- NOTE | 2021-01-19 23:21 | PN ---
DATE: 01/19/2021 SUBJECTIVE: The patient is resting, slightly propped up in bed, in no apparent distress. She is definitely more awake, alert, seemed to be still continued to have difficulty, expressive aphasia and right-sided weakness, more in the upper and right lower extremity. She was seen by the grape crusher who recommended putting her back on Eliquis, although the timing will depend on the neurologist's recommendation as there is fear of hemorrhagic transformation. I also discontinued her losartan as per cardiology recommendation. PHYSICAL EXAMINATION: GENERAL: When I examined her this afternoon, she looked well and was clearly in no apparent respiratory distress. She was pale. No jaundice, cyanosis or thyromegaly. No jugular distention. No edema. VITAL SIGNS: Heart rate was 60, blood pressure 117/61, temperature was 98.2, respiratory rate was 16 and oxygen saturation was 95%. HEAD, EYES, EARS, NOSE AND THROAT: Normocephalic, atraumatic. NECK: Supple. HEART: Showed normal first and second sounds. No gallop or murmur. CHEST: Clear to auscultation, occasional rhonchi. ABDOMEN: Distended, soft, nontender. NEUROLOGIC: She is awake, alert, responding appropriately. She continued to have expressive aphasia, right-sided weakness, more in right upper and right lower extremity. Her intake over the last 24 hours and output are incompletely recorded. LABORATORY DATA: This morning showed a white cell count 9900, hemoglobin 11, hematocrit 34, MCV 82 and platelet count of 182,000. Her chemistry showed a serum sodium 137, potassium 4.2, chloride 104, bicarbonate 23, anion gap of 10, BUN 17, creatinine 1.3. Estimated GFR was 48 mL per minute. Her glucose was 98 and calcium was 8.9. Her serum triglyceride was 75. Total cholesterol was 120, LDL cholesterol 73, VLDL was 15, HDL was 32 and the ratio was 3. Urinalysis essentially unremarkable and toxic screen was positive for cocaine. Her chest x-ray showed the cardiac silhouette is enlarged with mild congestion, prominent interstitial markings are noted diffusely bilaterally, which are nonspecific, but could represent interstitial edema or pneumonia. There is no appreciable pleural effusion or pneumothorax. ASSESSMENT: 1. 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 2. Hypertension. 3. Chronic obstructive pulmonary disease. 4. History of pulmonary embolism. 5. Severe mitral regurgitation. 6. Chronic congestive heart failure. She apparently underwent mitral valve replacement with bioprosthetic valve and apparently has history also of atrial fibrillation. PLAN: I discontinued her losartan. I will discuss the issue with Dr. Hightower and see if we can resume Eliquis. She probably needs to be in a half-way facility and tomorrow we will consult our social science research assistant to start the process of placing her. SAM DR: Caro TID: [id number]
[2021-01-20] MEDS: IV NORMAL SALINE 1,000ML 1,000 ML IV SCH ×2 (03:53→18:36)
[2021-01-20 05:13] VITALS: BP 125/84
--- NOTE | 2021-01-20 08:15 | PDOC ---
CARDIO Progress Notes Date & Time Date of Service DATE: 01/20/21 TIME: 08:08 Time of Evaluation 08:08 Subjective Notes No chest pain, palpitations, SOA Vitals Vitals Vital Signs Date Time Temp Pulse Resp B/P (MAP) Pulse Ox O2 Delivery O2 Flow Rate FiO2 01/20/21 05:13 98.3 73 20 125/84 (98) 96 Room Air Weight Weight [ ] Input and Output I.O. Intake and Output 01/20/21 07:00 Intake Total 2850 ml Balance 2850 ml Intake Oral 600 ml IV Total 2250 ml # Voids 3 Laboratory Labs Laboratory Tests Test 01/19/21 07:10 White Blood Count 9.9 x10^3/uL (4.0-11.0) Red Blood Count 4.22 x10^6/uL (3.50-5.40) Hemoglobin 11.2 g/dL (12.0-15.5) Hematocrit 34.5 % (36.0-47.0) Mean Corpuscular Volume 82 fL (79-100) Mean Corpuscular Hemoglobin 27 pg (25-35) Mean Corpuscular Hemoglobin Concent 32 g/dL (31-37) Red Cell Distribution Width 16.8 % (11.5-14.5) Platelet Count 182 x10^3/uL (140-400) Sodium Level 137 mmol/L (136-145) Potassium Level 4.2 mmol/L (3.5-5.1) Chloride Level 104 mmol/L (98-107) Carbon Dioxide Level 23 mmol/L (21-32) Anion Gap 10 (6-14) Blood Urea Nitrogen 17 mg/dL (7-20) Creatinine 1.3 mg/dL (0.6-1.0) Estimated GFR (Cockcroft-Gault) 48.9 Glucose Level 98 mg/dL (70-99) Calcium Level 8.9 mg/dL (8.5-10.1) Microbiology Micro Microbiology 01/17/21 Blood Culture - Preliminary, Resulted NO GROWTH AFTER 2 DAYS... Physical Exams HEENT: Neck Supple W Full Motion Chest: Symmetric Lungs: Clear to Auscultation Abdomen: Soft N/T Extremities: Other (right sided weakness ) Neurology: alert, follow commands, other (expressive asphasia ) Assessment Assessment 1. Acute CVA with right sided weakness and expressive aphasia 2. Mild troponin elevation; peak 0.16. most probably type II, demand ischemia. CP free 3. CAD s/p CABG 4. S/p bioprosthetic MVR 5. Hypertension; controlled 6. ? H/o PAFIB; not notation of AFIB in [facility] records. presently SR wit 1st degree AVB 7. BIB on CKD; improved 8. Substance abuse; UDS + cocaine Recommendations Secondary prevention Rehab modalities Echo to assess LV systolic function Consider addition of Eliquis when okay from a neuro standpoint Outpatient event monitor Supportive care CURTIS MUNIZ APRN January 20, 2021 08:14
[2021-01-20] MEDS: ASPIRIN CHEWABLE 81 MG TABLET. PO SCH (08:16)
[2021-01-20] MEDS: buPROPion SR 150 MG TABLET.SA PO SCH ×2 (08:16→20:32)
[2021-01-20] MEDS: ATORVASTATIN CALCIUM 20 MG TABLET PO SCH (08:16)
[2021-01-20] MEDS: CARVEDILOL 6.25 MG TABLET PO SCH ×2 (08:16→20:32)
[2021-01-20] MEDS: DULoxetine HCL 60 MG CAPSULE.DR PO SCH (08:17)
[2021-01-20 10:50] VITALS: BP 103/51
[2021-01-20 15:50] VITALS: BP 167/82
--- NOTE | 2021-01-20 18:30 | NUR ---
Nursing note Pt is resting comfortably in bed.
[2021-01-20 19:41] VITALS: BP 152/87
[2021-01-20] MEDS: LACTOBACILLUS RHAMNOSUS GG 1 CAPSULE. PO SCH (20:32)
[2021-01-20] MEDS: ACETAMINOPHEN 325 MG TABLET PO PRN (20:33)
[2021-01-20] MEDS: AZITHROMYCIN 500 MG in IV NORMAL SALINE 250ML 250 ML IV SCH (21:03)
--- NOTE | 2021-01-20 21:31 | PN ---
DATE: 01/20/2021 SUBJECTIVE: The patient denies any new medical or neurological complaints. She continues to have aphasia, difficulty finding words, and completing sentences. She still complains of weakness of the right upper extremity. OBJECTIVE: GENERAL: A well-developed, well-nourished -Faroese female in no acute distress. VITAL SIGNS: Blood pressure 125/84, respiratory rate is 20, pulse is 73, oxygen saturation is 96% on room air and temperature is 98.3. HEENT: Normocephalic, atraumatic, otherwise unremarkable. NECK: Supple, negative for carotid bruit, lymphadenopathy or thyromegaly. LUNGS: Clear to A and P. CARDIOVASCULAR: Regular rate and rhythm, normal S1, S2. ABDOMEN: Soft. Bowel sounds positive. EXTREMITIES: Negative for cyanosis, clubbing or pedal edema. NEUROLOGIC: Mental status: The patient is alert and oriented. She follows 1-step commands. She is still aphasic and with paraphasia; otherwise unchanged in mental status. Cranial nerves are consistent with right facial asymmetry of central type. Motor examination revealed right hemiparesis, more prominent in the right upper extremity, distally more than proximally, consistent with a recent stroke. Sensory examination revealed a diminished pinprick and light touch senses over the right face, upper and lower extremities. Deep tendon reflexes were symmetric and hypoactive with absent Achilles responses. Gait not tested. IMPRESSION: 1. Status post acute stroke resulted with right hemiparesis, more prominent on the right upper extremity and aphasia, multiple risk factors as mentioned before. 2. Cocaine abuse, coronary artery disease, and possible paroxysmal atrial fibrillation. RECOMMENDATIONS: Continue with [facility], PT/OT and speech therapy. Awaiting for echocardiogram and Holter monitoring. WARREN DR: Lizet TID: [id number]
--- NOTE | 2021-01-21 00:07 | PN ---
DATE: 01/20/2021 SUBJECTIVE: The patient is sitting comfortably, eating her lunch comfortably, in no apparent distress. She is eating her lunch and has refused to take the pureed diet and wanted regular diet and apparently has been eating without any difficulty. Continued to have expressive aphasia and right-sided hemiplegia, more dense in the right upper extremity than the right lower extremity. She apparently was accepted by [facility], waiting for authorization. PHYSICAL EXAMINATION: GENERAL: When I examined her, she looked well and was clearly in no apparent respiratory distress, pale, not jaundiced, cyanosed, no thyromegaly. No jugular distention or limb edema. VITAL SIGNS: Heart rate was 84, blood pressure is 103/51, temperature 97.8, respiratory rate 20, and oxygen saturation was 94%. HEAD, EYES, EARS, NOSE AND THROAT: Normocephalic, atraumatic. NECK: Supple. HEART: Showed normal first and second heart sounds, no gallop, murmur. CHEST: Clear to auscultation, occasional rhonchi. ABDOMEN: Distended, soft, nontender. NEUROLOGIC: She is awake, alert, responding appropriately. Her cranial nerves are intact. She has right-sided facial droop and right-sided hemiplegia, more dense in the right upper extremity than lower extremity. Her intake was 830. No output was recorded. LABS: No lab work available today. As of yesterday, her serum sodium 137, potassium 4.2, chloride 104, bicarbonate 23, anion gap of 10, BUN 17, creatinine 1.3. Estimated GFR was 48 mL per minute. ASSESSMENT: 1. 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 2. Hypertension. 3. Chronic obstructive pulmonary disease. 4. History of pulmonary embolism. 5. Severe mitral regurgitation. 6. Chronic congestive heart failure, apparently underwent mitral valve replacement with a bioprosthetic valve and apparently has a history of atrial fibrillation. 7. Acute on chronic kidney injury, is improving. PLAN: To continue with azithromycin. Continue with atorvastatin. Continue with IV antibiotic for her UTI and aspiration pneumonia. Continue with physical and occupational therapy. Once authorized, the patient can be transferred to [facility]. BRIANNA/EKT DR: BRIANNA/fatuma TID: [id number]
[2021-01-21] MEDS: IV NORMAL SALINE 1,000ML 1,000 ML IV SCH ×2 (05:17→20:30)
[2021-01-21 06:03] VITALS: BP 158/81
[2021-01-21 07:04] LABS: HEMATOCRIT 33.5 % (36.0-47.0); HEMOGLOBIN 10.7 g/dL (12.0-15.5); RED BLOOD COUNT 4.09 x10^6/uL (3.50-5.40); RED CELL DISTRIBUTION WIDTH 16.9 % (11.5-14.5); WHITE BLOOD COUNT 8.7 x10^3/uL (4.0-11.0)
[2021-01-21 07:24] LABS: CALCIUM 8.7 mg/dL (8.5-10.1); GFR 66.1; POTASSIUM 3.7 mmol/L (3.5-5.1)
[2021-01-21] MEDS: ATORVASTATIN CALCIUM 20 MG TABLET PO SCH (08:16)
[2021-01-21] MEDS: CARVEDILOL 6.25 MG TABLET PO SCH ×2 (08:16→21:40)
[2021-01-21] MEDS: ASPIRIN CHEWABLE 81 MG TABLET. PO SCH (08:16)
[2021-01-21] MEDS: LACTOBACILLUS RHAMNOSUS GG 1 CAPSULE. PO SCH ×2 (08:17→21:41)
[2021-01-21] MEDS: DULoxetine HCL 60 MG CAPSULE.DR PO SCH (08:17)
[2021-01-21] MEDS: buPROPion SR 150 MG TABLET.SA PO SCH ×2 (08:17→21:40)
[2021-01-21 10:52] VITALS: BP 172/88
--- NOTE | 2021-01-21 14:18 | DISCH ---
DISCHARGE ORDERS DISCHARGE DATE: January 21, 2021 FINAL DIAGNOSIS Left middle cerebral artery infarct right maureen hemiplegia aphasia CONDITION AT DISCHARGE: Stable Code Status: Full SNF STAY <30 DAYS: Yes POST DISCHARGE ORDERS: ACTIVITY ORDERS: Activity as tolerated DIET AFTER DISCHARGE: Cardiac DISCHARGE MEDICATIONS: Home Meds Active Scripts Hydrocodone Bit/Acetaminophen (HYDROCODONE-APAP 5-325 ) 1 Each Tablet, 1 TAB PO TID PRN for abdominal pain for 5 Days, #15 TAB 0 Refills Prov:CHRISTINA LAKHANI MD 12/08/20 Ondansetron Hcl (ZOFRAN) 4 Mg Tablet, 1 TAB PO PRN Q6HRS PRN for NAUSEA for 5 Days, #20 TAB Prov:CHRISTINA LAKHANI MD 12/08/20 Reported Medications Olmesartan Medoxomil (BENICAR) 20 Mg Tablet, 1 TAB PO DAILY, #30 TAB 5 Refills 10/17/15 Furosemide (FUROSEMIDE) 20 Mg Tablet, 20 MG PO, TAB 03/15/14 Carvedilol (CARVEDILOL ) 6.25 Mg Tablet, 6.25 MG PO BID 12/06/13 Duloxetine Hcl (DULOXETINE HCL) 60 Mg Capsule.dr, 60 MG PO DAILY 12/06/13 Albuterol Sulfate (VENTOLIN HFA INHALER) 18 Gm Hfa.aer.ad, 18 GM IH 12/06/13 Atorvastatin Calcium (ATORVASTATIN CALCIUM) 20 Mg Tablet, 20 MG PO DAILY 12/06/13 Bupropion Hcl (BUPROPION HCL SR) 150 Mg Tablet.er, 150 MG PO BID 12/06/13 Discontinued Reported Medications Warfarin Sodium (WARFARIN SODIUM) 7.5 Mg Tablet, 7.5 MG PO 10/17/15 Discontinued Scripts Amoxicillin/Potassium Clav (AUGMENTIN 875-125 TABLET) 1 Each Tablet, 1 TAB PO BID for abdomianl infection for 10 Days, #20 TAB 0 Refills Prov:CHRISTINA LAKHANI MD 12/08/20 TANESHA GRACIA MD January 21, 2021 14:18
[2021-01-21 16:25] VITALS: BP 170/89
--- NOTE | 2021-01-21 17:33 | CARD ---
MR#: [id number] Date of Study: 01/21/2021 Ordering Physician: ATNESHA GRACIA, Referring Physician: TANESHA GRACIA, Tech: Marylou Dalteribrandt, [facility] APPROVED REPORT EXAM: Two-dimensional and M-mode echocardiogram with Doppler and color Doppler. Other Information Quality : AverageHR: 61bpm INDICATION COPD CVA/TIA Atrial Fibrillation Congestive Heart Failure RISK FACTORS Hypertension 2D DIMENSIONS Left Atrium(2D)3.7 (1.6-4.0cm)IVSd1.5 (0.7-1.1cm) Aortic Root(2D)3.0 (2.0-3.7cm)LVDd4.3 (3.9-5.9cm) LVOT Diameter1.9 (1.8-2.4cm)PWd1.2 (0.7-1.1cm) LVDs2.9 (2.5-4.0cm)FS (%) 32.1 % SV51.3 mlLVEF(%)60.5 (>50%) Aortic Valve AoV Peak Deangelo.123.4cm/sAoV VTI29.5cm AO Peak GR.6.1mmHgLVOT Peak Deangelo.90.8cm/s LVOT VTI 19.96cmAO Mean GR.3mmHg TAM (VMAX)2.31pt1FIX (VTI)1.86cm2 Mitral Valve MV E Mmnuutea436.2cm/sMV E Peak Gr.19mmHg MV DECEL [id number] A Kcquemtz532.6cm/s MV E Mean Gr.11mmHgE/A Ratio1.2 Pulmonary Valve PV Peak Xvopmsta66.0cm/sPV Peak Grad.2mmHg Tricuspid Valve TR P. Pnjjuwfh042wu/sTR Peak Gr.64mmHg LEFT VENTRICLE The left ventricle is normal size. There is moderate concentric left ventricular hypertrophy. The lef t ventricular systolic function is moderately impaired. EF 35-40% There is moderate global hypokinesi s of the left ventricle with basal to mid inferior wall akinesis. Transmitral Doppler flow pattern is Grade II-pseudonormal filling dynamics. RIGHT VENTRICLE The right ventricle is borderline dilated. The right ventricle is borderline hypertrophied. The right ventricular systolic function is normal. ATRIA The left atrium is moderately dilated. The right atrium is mildly dilated. The interatrial septum is intact with no evidence for an atrial septal defect or patent foramen ovale as noted on 2-D or Dopple r imaging. AORTIC VALVE The aortic valve is thickened but opens well. Doppler and Color Flow revealed no significant aortic r egurgitation. There is no significant aortic valvular stenosis. Calculated aortic valve area is 2.1 c m2 with maximum pressure gradient of 6 mmHg and mean pressure gradient of 3 mmHg. MITRAL VALVE There is no evidence of mitral valve prolapse. The mitral valve mean gradient is 11.14 mmHg suggestiv e of moderate to severe MS. Doppler and Color-flow revealed trace mitral regurgitation. Probable biop rosthetic mitral valve in place. TRICUSPID VALVE The tricuspid valve is normal in structure and function. Doppler and Color Flow revealed trace to mil d tricuspid regurgitation with an estimated PAP of 67 mmHg. There is moderate to severe pulmonary hyp ertension. There is no tricuspid valve stenosis. PULMONIC VALVE The pulmonic valve is not well visualized. Doppler and Color Flow revealed trace pulmonic valvular re gurgitation. There is no pulmonic valvular stenosis. GREAT VESSELS The aortic root is normal in size. The IVC is normal in size and collapses >50% with inspiration. PERICARDIAL EFFUSION There is no evidence of significant pericardial effusion. Critical Notification Critical Value: No <Conclusion> The left ventricular systolic function is moderately impaired. EF 35-40% There is moderate global hypokinesis of the left ventricle with basal to mid inferior wall akinesis. Probable bioprosthetic mitral valve in place. The mitral valve mean gradient is 11.14 mmHg suggestive of moderate to severe MS. Doppler and Color Flow revealed trace to mild tricuspid regurgitation with an estimated PAP of 67 mmH g. There is moderate to severe pulmonary hypertension. Signed by : Shane Solorzano, Electronically Approved : 01/21/2021 17:33:03
[2021-01-21 19:08] VITALS: BP 157/81
[2021-01-21] MEDS: AZITHROMYCIN 500 MG in IV NORMAL SALINE 250ML 250 ML IV SCH (21:40)
--- NOTE | 2021-01-21 22:08 | PN ---
SUBJECTIVE: The patient denies any new medical or neurological complaints. She wants to go home. OBJECTIVE: GENERAL: A well-developed, well-nourished -[place]cu[place] female, not in acute distress. VITAL SIGNS: Blood pressure is 158/81, respiratory rate 16, pulse is 68, temperature is 97.9, oxygen saturation 97% on room air. HEENT: Normocephalic, atraumatic, otherwise unremarkable. NECK: Supple, negative for carotid bruit, lymphadenopathy or thyromegaly. LUNGS: Clear to A and P. CARDIOVASCULAR: Regular rate and rhythm. Normal S1, S2. ABDOMEN: Soft. Bowel sounds positive. EXTREMITIES: Negative for cyanosis, clubbing or pedal edema. NEUROLOGIC: Mental status: The patient is more awake and oriented to environment, herself and place. Speech is slightly better, but still having difficulty finding words or completing sentences. The patient still has paraphasia. She denies hallucination or delusion. Further evaluation of her mental status is limited at this time. Cranial nerves are intact; however, the right facial asymmetry has improved somewhat compared to that on the last 2 days. Motor examination: No focal muscle bulk wasting. The tone is normal. The strength is 4/5 in the right upper extremity and more distally than proximally. The strength also was 5/5 throughout. Sensory examination revealed a slightly diminished pinprick and light touch senses over the right upper and lower extremities compared to those on the left side. Deep tendon reflexes were symmetric and hypoactive with absent Achilles responses. Gait: The patient uses a walker for ambulation with assistance. IMPRESSION: 1. Status post acute stroke resulting in a right hemiparesis, more prominent in the right upper extremity with some improvement of her deficit at this time; however, she continues to have aphasia. 2. Cocaine abuse, coronary artery disease, and possible paroxysmal atrial fibrillation. RECOMMENDATION: We will continue with current management and stroke rehabilitation along with cardiology recommendations. KOSTAS DR: Lizet TID: [id number]
[2021-01-21 23:20] VITALS: BP 153/83
--- NOTE | 2021-01-21 23:58 | PN ---
DATE: 01/21/2021 SUBJECTIVE: The patient is sitting comfortably in her chair in no apparent distress. She is awake, alert. On questioning her, denied any complaint. Nursing staff did not voice any concerns. OBJECTIVE: GENERAL: On examining her, she was somewhat pale, but not jaundiced, cyanosed, no thyromegaly. No jugular venous distention. No lymphedema. VITAL SIGNS: Heart rate was 62, blood pressure is 172/88, temperature was 98.4, respiratory rate was 16 and oxygen saturation was 97% on room air. HEAD, EYES, EARS, NOSE AND THROAT: Normocephalic, atraumatic. NECK: Supple. HEART: Showed normal first and second heart sounds, no gallop, murmur. CHEST: Clear to auscultation, no crepitation or rhonchi. ABDOMEN: Distended, soft, nontender. NEUROLOGIC: She is awake, alert, responding appropriately. She has right-sided facial droop, right-sided hemiplegia and aphasia. Her intake was 2150, no output was recorded. LABORATORY DATA: As of this morning showed a white cell count of 8700, hemoglobin 11, hematocrit 33, MCV 82 and platelet count 240,000. Her chemistry showed a serum sodium 138, potassium 3.7, chloride 101, bicarbonate 23, anion gap of 14, BUN 9, creatinine 1, estimated GFR was 66 mL per minute. Her glucose was 76 and calcium was 8.7. Her serum triglycerides were 75. Total cholesterol 120, LDL was 73, VLDL was 15, HDL 32 and the ratio was 3. ASSESSMENT: 1. 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 2. Hypertension. 3. Chronic obstructive pulmonary disease. 4. History of pulmonary embolism. 5. Severe mitral regurgitation. 6. Chronic congestive heart failure. 7. Atrial fibrillation. 8. Acute on chronic kidney injury, improving. 9. Severe mitral regurgitation with bioprosthetic valve. PLAN: To continue with azithromycin and ceftriaxone for possible aspiration pneumonia and urinary tract infection. Continue with physical and occupational therapy. If authorized, the patient can be transferred to [facility]. BRIANNA/EKT DR: Caro TID: [id number]
[2021-01-22 05:55] VITALS: BP 156/85
[2021-01-22] MEDS: DULoxetine HCL 60 MG CAPSULE.DR PO SCH (08:05)
[2021-01-22] MEDS: ATORVASTATIN CALCIUM 20 MG TABLET PO SCH (08:05)
[2021-01-22] MEDS: LACTOBACILLUS RHAMNOSUS GG 1 CAPSULE. PO SCH ×2 (08:05→20:25)
[2021-01-22] MEDS: buPROPion SR 150 MG TABLET.SA PO SCH ×2 (08:06→20:25)
[2021-01-22] MEDS: CARVEDILOL 6.25 MG TABLET PO SCH ×2 (08:06→20:26)
[2021-01-22] MEDS: ASPIRIN CHEWABLE 81 MG TABLET. PO SCH (08:06)
[2021-01-22] MEDS: IV NORMAL SALINE 1,000ML 1,000 ML IV SCH ×2 (09:50→21:02)
[2021-01-22 10:38] VITALS: BP 175/83
[2021-01-22 15:26] VITALS: BP 156/89
[2021-01-22 18:47] VITALS: BP 162/89
--- NOTE | 2021-01-22 20:09 | PN ---
SUBJECTIVE: The patient denies any new medical or neurological complaints. She denies headaches, chest pain, shortness of breath or palpitation, dysarthria or dysphagia or visual disturbances. OBJECTIVE: GENERAL: Well-developed, well-nourished -Angolan female not in acute distress. VITAL SIGNS: Blood pressure 156/85, respiratory rate is 16, pulse is 73 and regular, temperature is 97.9, oxygen saturation is 94% on room air. HEENT: Normocephalic, atraumatic, otherwise unremarkable. NECK: Supple. Negative for carotid bruit, lymphadenopathy or thyromegaly. LUNGS: Sounds clear to A and P. CARDIOVASCULAR: Regular rate and rhythm. Normal S1, S2. There is no S3, S4 or murmur. ABDOMEN: Soft. Bowel sounds positive. EXTREMITIES: Negative for cyanosis, clubbing or pedal edema. NEUROLOGIC: Mental status: The patient is alert and oriented to herself and situation. The speech is more fluent. There still has some language dysfunctions and still mild aphasia. There is no obvious facial asymmetry. Hearing is intact bilaterally. The palate is elevated symmetrically. Sternocleidomastoid muscles are powerful bilaterally. The patient shrugs her shoulders symmetrically, protrudes her tongue in the midline without fasciculation or atrophy. Motor: No focal muscle bulk wasting. The tone is normal. The strength is 4/5 in the right upper extremity and 5/5 throughout. Sensory examination revealed mildly diminished pinprick and light touch senses over the right face, upper and lower extremities. Deep tendon reflexes were symmetric and hypoactive with absent Achilles responses. Gait not tested. The patient uses a walker for ambulation with assistance. IMPRESSION: 1. Status post acute stroke resulted in aphasia and language dysfunction and right hemiparesis, more prominent on the right upper extremity -- moderately improved with a residual of aphasia and finding words or complete sentences. 2. Cocaine abuse may have contributed to the current stroke. 3. Coronary artery disease status post coronary artery bypass graft and hypertension. RECOMMENDATIONS: Continue with current management initiated by Dr. Boles and Dr. Diaz, along with stroke rehabilitation. The patient is neurologically making some progress. AFIA/BOUBACAR DR: Lizet TID: [id number]
[2021-01-22] MEDS: AZITHROMYCIN 500 MG in IV NORMAL SALINE 250ML 250 ML IV SCH (21:02)
--- NOTE | 2021-01-22 21:59 | PN ---
DATE: 01/22/2021 ATTENDING PHYSICIAN: Dr. Boles and Dr. Diaz. SUBJECTIVE: No new complaints. She remains aphasic and very confused. OBJECTIVE FINDINGS: VITAL SIGNS: The patient is afebrile. Blood pressure is 150/65. Oxygen saturation 98% on room air. HEENT: Head is without trauma. Pupils are reactive. Sclerae nonicteric. Oropharynx clear. NECK: Supple, no bruits. LUNGS: Shallow respirations. CARDIOVASCULAR: Showed regular heart tones. No obvious gallops. ABDOMEN: Soft, nontender. EXTREMITIES: Awake, alert. Right-sided facial droop, right-sided hemiplegia and expressive aphasia. LABORATORY STUDIES: From yesterday reviewed. ASSESSMENT: 1. 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 2. Essential hypertension. 3. Chronic obstructive pulmonary disease. 4. History of pulmonary embolism. 5. Chronic congestive heart failure, compensated. 6. Mitral regurgitation by history. 7. Paroxysmal atrial fibrillation. 8. Acute on chronic kidney injury, improving. 9. Bioprosthetic valve due to mitral regurgitation. PLAN: 1. Meds reviewed and continued. 2. Await placement for rehabilitation. LINA/YOVANNY DR: LINA/fatuma TID: [id number]
[2021-01-23 06:10] VITALS: BP 148/81
[2021-01-23] MEDS: LACTOBACILLUS RHAMNOSUS GG 1 CAPSULE. PO SCH (07:55)
[2021-01-23] MEDS: ATORVASTATIN CALCIUM 20 MG TABLET PO SCH (07:55)
[2021-01-23] MEDS: DULoxetine HCL 60 MG CAPSULE.DR PO SCH (07:55)
[2021-01-23] MEDS: ASPIRIN CHEWABLE 81 MG TABLET. PO SCH (07:55)
[2021-01-23] MEDS: buPROPion SR 150 MG TABLET.SA PO SCH (07:55)
[2021-01-23] MEDS: CARVEDILOL 6.25 MG TABLET PO SCH (07:55)
[2021-01-23] MEDS ORDERED: LISINOPRIL 10 MG TABLET PO SCH (09:00)
--- NOTE | 2021-01-23 09:31 | PN ---
DATE: 01/23/2021 DATE OF SERVICE: 01/23/2021 ATTENDING PHYSICIAN: Dr. Boles. SUBJECTIVE: She is comfortable. She is asking when she can go home. She remains partially aphasic. The confusion is a little better. OBJECTIVE FINDINGS: VITAL SIGNS: Blood pressure this morning is 148/81 mmHg, her pulse is 74 and regular. She is afebrile with a temperature of 98.2 degrees Fahrenheit and her oxygen saturation 96% on room air. HEENT: Head is without trauma. Pupils are reactive. Sclerae nonicteric. The oropharynx is clear. NECK: Supple, no bruits identified. LUNGS: Otherwise clear. HEART: Regular heart tones. No gallops. ABDOMEN: Soft. EXTREMITIES: Without edema. NEUROLOGIC: Partial expressive aphasia. LABORATORY STUDIES: Last 4 blood sugars were 98, 76, 55, and 77 respectively. ASSESSMENT: 1. A 70-year-old female with cerebrovascular accident and expressive aphasia. 2. Essential hypertension. 3. Mitral regurgitation. 4. Paroxysmal atrial fibrillation. 5. Bioprosthetic valve. 6. Chronic obstructive pulmonary disease. 7. History of pulmonary embolism. PLAN: 1. I reviewed her medication work. She is not getting anything for diabetes. She is not symptomatic with the blood sugar, although she is not eating much. 2. Continue medicines as prescribed. I reviewed her list of meds. 3. Await placement at acute rehabilitation. LINA/ALAYNA MIRZA: Carlotta TID: [id number]
[2021-01-23 11:01] VITALS: BP 115/77
--- NOTE | 2021-01-23 14:43 | NUR ---
PATIENT IS DISCHARGED TO [facility]. REPORT GIVEN TO STAFF NURSE. PATIENT LEFT ROOM 113 VIA W/C ACCOMP BY STAFF ENCODING CLERK AND FAMILY. PATIENT TAKEN TO REHAB BY TRANSPORTATION PROVIDED BY FACILITY.
--- NOTE | 2021-01-23 15:00 | NUR ---
AFTER PATIENT BEING DISCHARGED AND PATIENT WENT TO THE TRANSPORTATION VAN, PATIENT REFUSED TO BE TAKEN TO REHAB CENTER, GOT UP FROM THE VEHICLE, DECIDED TO GO HOME. CASE MANAGEMENT, NOTIFIED, AFTER TALKING TO CM AND FRIEND FROM THE [facility], PATIENT CONTINUED TO INSIST GOING HOME. TRANSPORT LEFT WITHOUT PATIENT. PATIENT TAKEN HOME BY FRIEND VIA PERSONAL TRANSPORTATION.
--- NOTE | 2021-01-23 15:21 | DS ---
DATE OF DISCHARGE: 01/23/2021 ADDENDUM ATTENDING PHYSICIAN: Dr. Gracia. Please refer to Dr. Gracia's discharge orders. This patient was awaiting bed availability. She is going to the same [facility] facility. Her discharge meds are unchanged. Please refer to the discharge summary of 01/21. There are no new clinical changes. ISAAC DR: Carlotta TID: [id number] CC: TANESHA GRACIA MD
--- NOTE | 2021-02-03 03:06 | PN ---
DATE: 01/23/2021 SUBJECTIVE: The patient denies any new medical neurological complaints. She denies chest pain, shortness of breath or palpitation, dysarthria or dysphagia. She denies headaches as well. OBJECTIVE: GENERAL: Well-developed, well-nourished female in no acute distress. VITAL SIGNS: Blood pressure 115/77, respiratory rate 18, pulse is 70 and regular, temperature 97.8, oxygen saturation 98% on room air. HEENT: Normocephalic, atraumatic, otherwise unremarkable. NECK: Supple, negative for carotid bruit, lymphadenopathy or thyromegaly. LUNGS: Clear to A and P. CARDIOVASCULAR: Regular rate and rhythm, normal S1, S2. ABDOMEN: Soft. Bowel sounds positive. EXTREMITIES: Negative for cyanosis, clubbing or edema. NEUROLOGIC: Mental status: The patient is alert and oriented to herself and situation. Speech is fluent. There is still some language dysfunctions with mild aphasia. There is no facial asymmetry. Rest of her cranial nerves are intact. The motor examination reveals strength of 4/5 in the right upper extremity and 5/5 throughout. Sensory examination revealed a diminished pinprick and light touch senses over the right face, upper and lower extremities. Deep tendon reflexes were symmetric and hypoactive with absent Achilles responses. Gait and coordination are normal. ASSESSMENT: 1. Status post acute stroke resulted in a Broca's aphasia and language dysfunction with right hemiparesis, more prominent in the right upper extremity. 2. Cocaine abuse may have contributed to the stroke. 3. Coronary artery disease status post coronary artery bypass graft and hypertension. RECOMMENDATIONS: Continue with current management initiated by Dr. Boles and Dr. Diaz along with stroke rehabilitation. The patient is making some neurological recovery. ELENA/CARLITA DR: Lizet TID: [id number]
== END 2021-01-23 14:45 | DRG 64 ==
LOC: ER 10:35 → 1 SOUTH 14:07
PROVIDERS: ADMIT Internal Medicine; ATTEND Internal Medicine
DX: I63.10 Cerebral infarction due to embolism of unspecified precerebral artery (principal); N17.0 Acute kidney failure with tubular necrosis; I13.0 Hypertensive heart and chronic kidney disease with heart failure and stage 1 through stage 4 chronic kidney disease, or unspecified chronic kidney disease; I24.8 Other forms of acute ischemic heart disease; G81.91 Hemiplegia, unspecified affecting right dominant side; E11.22 Type 2 diabetes mellitus with diabetic chronic kidney disease; E11.51 Type 2 diabetes mellitus with diabetic peripheral angiopathy without gangrene; E78.5 Hyperlipidemia, unspecified; F17.200 Nicotine dependence, unspecified, uncomplicated; F32.9 Major depressive disorder, single episode, unspecified; F41.9 Anxiety disorder, unspecified; G51.0 Bell's palsy; I25.10 Atherosclerotic heart disease of native coronary artery without angina pectoris; I34.0 Nonrheumatic mitral (valve) insufficiency; I48.0 Paroxysmal atrial fibrillation; I50.9 Heart failure, unspecified; I70.0 Atherosclerosis of aorta; J44.9 Chronic obstructive pulmonary disease, unspecified; N18.9 Chronic kidney disease, unspecified; F14.90 Cocaine use, unspecified, uncomplicated; R29.706 NIHSS score 6; Z79.01 Long term (current) use of anticoagulants; Z82.49 Family history of ischemic heart disease and other diseases of the circulatory system; Z86.711 Personal history of pulmonary embolism; Z95.1 Presence of aortocoronary bypass graft; Z95.3 Presence of xenogenic heart valve; E66.9 Obesity, unspecified; M19.90 Unspecified osteoarthritis, unspecified site; Z90.49 Acquired absence of other specified parts of digestive tract; Z20.822 Contact with and (suspected) exposure to COVID-19; Z60.2 Problems related to living alone; Z79.899 Other long term (current) drug therapy; R47.01 Aphasia
CPT/HCPCS: 36415; 70450; 70496; 70498; 71045; 80048; 80053; 80061; 80307; 81001; 82947; 83605; 84484; 85025; 85027; 85610; 85730; 87040; 87426; 93005; 93306; 96374; J0456; J0696; J2405; J7040; J7050; U0003; 92610; 97110; 97112; 97116; 97530; 97535; 99291-25; J7030

== ENCOUNTER 2021-06-02 15:50 | Emergency (ER) | payer OTHER ==
[~2021-06-02] VITALS: Ht 149.9 cm; Wt 50.0 kg
[2021-06-02 16:45] VITALS: BP 149/85
--- NOTE | 2021-06-02 16:53 | PHYS DOC ---
Past History Past Medical History: Arthritis, COPD, Depression (PAULINA DRUMMOND APRN) Past Surgical History: Cholecystectomy Additional Past Surgical Histo: MVR 02/11/15 (PAULINA DRUMMOND APRN) Smoking: Cigarettes Alcohol Use: None Drug Use: Marijuana (PAULINA DRUMMOND APRN) General Adult EDM: Chief Complaint: INSECT BITE HPI: HPI: Patient is a 70-year-old female who presents to the ER for increased swelling to her left foot proximal to her great toe along the site of her bunion. She reports that she has had the bunion for years and she noticed increased swelling to her foot x2 days. Patient thought maybe the swelling was due to an insect bite but she did not see an insect bite her. No treatment prior to arrival. She denies any itching, fevers, chills, body aches, decreased sensation to extremity or decreased range of motion. She is able to bear weight and ambulate with a cane. Patient is afebrile her vital signs are stable. Patient does not have a healthcare economics manager. (PAULINA DRUMMOND APRN) Review of Systems: Review of Systems: 14 body systems of the review of systems have been reviewed. See HPI for pertinent positive and negative responses, otherwise all other systems are negative, nonpertinent or noncontributory (PAULINA DRUMMOND APRN) Allergies: Allergies: Allergies Coded Allergies Type Severity Reaction Last Updated Verified No Known Drug Allergies 10/17/15 No (PAULINA DRUMMOND APRN) Physical Exam: PE: Constitutional: Well developed, well nourished, no acute distress, non-toxic appearance. [] HENT: Normocephalic, atraumatic Eyes: PERRL, EOMI, conjunctiva normal, no discharge. [] Neck: Normal range of motion, no stridor Cardiovascular: Normal peripheral perfusion Lungs & Thorax: Normal work of breathing, no tachypnea Abdomen: Soft and flat Skin: Warm, dry, no erythema, no rash. [] Back: Normal range of motion Extremities: No tenderness, no cyanosis, no clubbing, ROM intact, no edema. [] Left foot: Bunion noted to left foot proximal to great toe, range of motion intact, neuro intact, no lesions or wounds Neurologic: Alert and oriented X 3, normal motor function, normal sensory function, no focal deficits noted. [] Psychologic: Affect normal, judgement normal, mood normal. [] (PAULINA DRUMMOND APRN) EKG: EKG: [] (PAULINA DRUMMOND APRN) Radiology/Procedures: Radiology/Procedures: [] (PAULINA DRUMMOND APRN) Heart Score: C/O Chest Pain: N/A Risk Factors: Risk Factors: DM, Current or recent (<one month) smoker, HTN, HLP, family history of CAD, obesity. Risk Scores: Score 0 - 3: 2.5% MACE over next 6 weeks - Discharge Home Score 4 - 6: 20.3% MACE over next 6 weeks - Admit for Clinical Observation Score 7 - 10: 72.7% MACE over next 6 weeks - Early Invasive Strategies (PAULINA DRUMMOND APRN) Course & Med Decision Making: Course & Med Decision Making Pertinent Labs and Imaging studies reviewed. (See chart for details) Patient is a 70-year-old female being seen in the ER for left great toe pain and swelling along the side of her bunion. Patient thought that she had been bit by an insect but did not see an insect bite. There is no evidence of an insect bite I believe that patient's swelling is due to her bunion. Patient was advi sed to take Tylenol and ibuprofen as she has not taken any of those for her treatment. She is also advised to apply ice and possibly purchase orthotics for bunions. She was also given follow-up information for healthcare economics manager. I discussed with patient all findings as well as the need to follow-up with PCP for further evaluation and treatment or return to the ER if any new or worsening symptoms. Strict return precautions were also discussed at length. Patient voiced understanding and agreement with the plan. Patient is hemodynamically stable at the time of disposition. (PAULINA DRUMMOND APRN) Dragon Disclaimer: Dragon Disclaimer: This electronic medical record was generated, in whole or in part, using a voice recognition dictation system. (PAULINA DRUMMOND APRN) Attending Co-Sign The patient was seen and interviewed as well as examined at the bedside. The chart was reviewed. The case was discussed. Agree with the plan of care. (BRISA VILLASENOR DO) Departure Departure: Impression: Primary Impression: Bunion of great toe Disposition: HOME / SELF CARE / HOMELESS Condition: GOOD Referrals: PCP,NO (PCP) Patient Instructions: Bunion (Hallux Valgus)-[employer] Additional Instructions: You were seen in the ER today for increased swelling to your right foot close to your bunion site. I believe that your bunion is getting worse. Take Tylenol or ibuprofen at home for any pain. You can also apply ice. You may need to purchase wide toe shoes or orthotics. You will need to follow-up with the healthcare economics manager. You can call associated healthcare economics manager of [facility] at [phone] to follow-up with them. Return to the ER if you develop worsening of your pain, inability to bear weight or walk, high fevers refractory to treatment or any new or worsening concerns. EMERGENCY DEPARTMENT GENERAL DISCHARGE INSTRUCTIONS Thank you for coming to [facility] (ED) today and trusting us with you care. We trust that you had a positivie experience in our Emergency Department. If you wish to speak to the department management, you may call the director at [phone]. YOUR FOLLOW UP INSTRUCTIONS ARE FOLLOWS: 1. Do you have a private Doctor? If you do not have a private doctor, please ask for a resource list of physicians or clinics that may be able to assist you with follow up care. 2. The Emergency Physician has interpreted your x-rays. The X-Ray specialist will also review them. If there is a change in the findings, you will be notified in 48 hours when at all possible. 3. A lab test or culture has been done, your results will be reviewed and you will be notified if you need a change in treatment. ADDITIONAL INSTRUCTIONS AND INFORMATION: 1. Your care today has been supervised by a physician who is specially trained in emergency care. Many problems require more than one evaluation for a complete diagnosis and treatment. We recommend that you schedule your follow up appointment as recommended to ensure complete treatment of you illness or injury. If you are unable to obtain follow up care and continue to have a problem, or if your condition worsens, we recommend that you return to the ED. 2. We are not able to safely determine your condition over the phone nor are we able to give sound medical advice over the phone. For these safety reasons, if you call for medical advice we will ask you to come to the ED for further evaluation. 3. If you have any questions regarding these discharge instructions please call the ED at [phone]. SAFETY INFORMATION: In the interest of safety, wellness, and injury prevention; we encourage you to wear your sealbelt, if you smoke; quite smoking, and we encourage family to use a protective helmet for bicycling and other sporting events that present an increased risk for head injury. IF YOUR SYMPTOMS WORSEN OR NEW SYMPTOMS DEVELOP, OR YOU HAVE CONCERNS ABOUT YOUR CONDITION; OR IF YOUR CONDITION WORSENS WHILE YOU ARE WAITING FOR YOUR FOLLOW UP APPOINTMENT; EITHER CONTACT YOUR PRIMARY CARE DOCTOR, THE PHYSICIAN WHOSE NAME AND NUMBER YOU WERE GIVEN, OR RETURN TO THE ED IMMEDIATELY. PAULINA DRUMMOND APRN Jun 02, 2021 16:53 BRISA VILLASENOR DO Jun 02, 2021 17:19
[2021-06-02] MEDS ORDERED: IBUPROFEN 600 MG TABLET. PO ONE (17:00)
== END 2021-06-02 17:29 | disposition home or self-care (01) ==
LOC: ER 15:50
DX: M21.612 Bunion of left foot (principal); M19.90 Unspecified osteoarthritis, unspecified site; J44.9 Chronic obstructive pulmonary disease, unspecified; F17.210 Nicotine dependence, cigarettes, uncomplicated
CPT/HCPCS: 99282